=== PATIENT | female | born 1995 | race Caucasian/White ===

== ENCOUNTER 2018-08-10 14:32 | Outpatient (REF) | payer BC, SELFPAY ==
[2018-08-13 15:20] LABS: Chlamydia Result Negative; GC Result Negative; Specimen Description URINE
== END 2018-08-10 14:52 ==
LOC: LBN 14:32
PROVIDERS: PCP Nurse Practitioner Family; Visit Provider Nurse Practitioner Women's Health
DX: Z11.3 Encounter for screening for infections with a predominantly sexual mode of transmission (principal)
CPT/HCPCS: 87491; 87591

== ENCOUNTER 2018-10-29 11:48 | Outpatient (REF) | payer BC, SELFPAY | END 2018-10-29 12:08 | LOC: LBN 11:48 | PROVIDERS: PCP Nurse Practitioner Family; Visit Provider Nurse Practitioner Family | DX: J02.9 Acute pharyngitis, unspecified (principal) | CPT/HCPCS: 87077; 87070 ==

== ENCOUNTER 2019-05-10 15:07 | Outpatient (REF) | payer BC, SELFPAY ==
[2019-05-10 18:28] LABS: Absolute Basophil Count 0.02 k/cumm (0.0-0.2); Absolute Eosinophil Count 0.14 k/cumm (0.0-0.7); Absolute Lymphocyte Count 1.62 k/cumm (1.2-3.4); Absolute Neutrophil Count 4.47 k/cumm (1.2-6.7); Basophils % 0.3; Eosinophils % 2.1; HCT 39.2 % (36.0-46.0); Mean Corp. HGB Concentration 35.7 g/dL (32.0-36.0); Mean Corpuscular Hemoglobin 32.3 pg (27.0-33.0); Mean Corpuscular Volume 90.3 fL (80-95); Mean Platelet Volume 11.9 fL (8.0-11.0); Monocytes % 7.4; Neutrophils % 66.2; Platelet Count 252 x1000/uL (130-400); RBC 4.34 m/cumm (4.00-5.20); RBC Distribution Width 11.5 % (11.7-14.6); White Blood Cell Count 6.75 k/cumm (4.4-10.8)
[2019-05-10 19:27] LABS: Iron 168 ug/dL (50-175); Total Iron Binding Capacity 325 ug/dL (250-450); Transferrin Sat 52 % (15-50)
[2019-05-10 19:42] LABS: ALT 32 U/L (12-78); AST 18 U/L (15-37); Albumin 4.6 g/dL (3.4-5.0); Alkaline Phosphatase 82 U/L (46-116); Anion Gap 11.4 mmol/L (3-11); BUN 13 mg/dL (7-18); Bilirubin, Total 0.6 mg/dL (0.2-1.0); CO2 24.6 mmol/L (21.0-32.0); CREATININE 0.69 mg/dL (0.55-1.02); Calcium 9.5 mg/dL (8.5-10.1); Chloride 105 mmol/L (98-107); Ferritin 121 ng/mL (8-388); Glucose 81 mg/dL (70-100); Potassium 4.2 mmol/L (3.5-5.1); Sodium 141 mmol/L (136-145); TSH (W/Ref FT4) 1.27 uIU/mL (0.358-3.74); Total Protein 7.1 g/dL (6.4-8.2)
== END 2019-05-10 15:27 ==
LOC: LBN 15:07
PROVIDERS: PCP Nurse Practitioner Family; Visit Provider Family Medicine
DX: R53.83 Other fatigue (principal)
CPT/HCPCS: 80053; 82728; 83540; 83550; 84443; 85025

== ENCOUNTER 2019-08-09 12:40 | Outpatient (REF) | payer OTHER, SELFPAY ==
--- NOTE | 2019-08-09 11:00 | PAPFT_PTH ---
PATIENT: Bhakti Dunbar LOC: [facility] U#:[id number] AGE/SX: 24/F ROOM: RE08/09/[address]: KARLA Munson : 1995 BED: DIS: 08/09/2019 SPEC #: [id number] RECD: 08/09/19 13:00 STATUS: ANGY DUMONT #: [id number] CHIVO: 08/09/19 11:[address]: Pamella Liu DEPT: [facility] Cytology RECD BY: Radha Alcocer ENTERED: 08/09/19 13:00 SP TYPE: PAPFT OT DR: Laura Henriquez APRN Tissues: 1 - CX/ENDOCX FOR PAP SMEARS Procedures: PAP THIN PREP/UVM Screening Comments: [id number]
== END 2019-08-09 13:00 ==
LOC: LBN 12:40
PROVIDERS: PCP Nurse Practitioner Family; Visit Provider Nurse Practitioner Family
DX: Z12.4 Encounter for screening for malignant neoplasm of cervix (principal)
CPT/HCPCS: 88142

== ENCOUNTER 2019-09-09 14:57 | Outpatient (CLI) | payer OTHER, SELFPAY ==
[2019-09-09 16:38] LABS: Folate 14.1 ng/mL (8.6-20.0); Vitamin B12 505 pg/mL (193-986)
== END 2019-09-09 15:17 ==
PROVIDERS: PCP Nurse Practitioner Family; Visit Provider Otolaryngology Otolaryngology/Facial Plastic Surgery
DX: R42 Dizziness and giddiness (principal)
CPT/HCPCS: 36415; 82607; 82746

== ENCOUNTER 2019-12-23 16:13 | Outpatient (CLI) | payer OTHER, SELFPAY ==
[2019-12-23 18:14] LABS: ESR 6 mm/hr (0-20)
[2019-12-25 12:13] LABS: Lyme Ab w Rflx to Lyme Confirm Negative (Negative)
== END 2019-12-23 16:33 ==
PROVIDERS: PCP Nurse Practitioner Family; Visit Provider Otolaryngology Otolaryngology/Facial Plastic Surgery
DX: R42 Dizziness and giddiness (principal); R47.1 Dysarthria and anarthria; R53.82 Chronic fatigue, unspecified; W57.XXXD Bitten or stung by nonvenomous insect and other nonvenomous arthropods, subsequent encounter
CPT/HCPCS: 36415; 85652; 86618

== ENCOUNTER 2019-12-30 22:34 | Emergency (ER) | payer OTHER, SELFPAY ==
[2019-12-30 22:37] VITALS: BP 130/75; PULSE 69; RESP 20; TEMP 36.8; O2SAT 97
--- NOTE | 2019-12-30 22:54 | ED.GENADUL_ITS ---
Discharge Plan Disposition Patient Disposition: HOME Condition: Stable Discharge Details Chief Complaint: SPACE CONTROLLER Clinical Impression: Pelvic cramping Primary Care Provider: Laura Henriquez ED Provider: Linda Sy Home Meds and New Rx's Prescriptions: No Action ParaGard T 380A 380 square mm intrauterine device 1 device IY ONCE RF: 0 meclizine 12.5 MG tablet 12.5 mg PO BID PRNQty: 60 RF: 0 cholecalciferol (vitamin D3) 1,000 UNIT tablet 1,000 unit PO DAILY RF: 0 Discharge Instructions Instructions: Pelvic Pain in Women (ED) Additional Instructions: Please take Tylenol or Ibuprofen with food every 4-6 hours as needed for pain and swelling. Follow up with primary care provider in 3-5 days. Return to ED sooner if any worsening or concerns. Increase oral fluids. Follow-up with SPACE CONTROLLER as discussed first thing in the morning. If any bleeding worsening in pain, fever vomiting return to the ED. Medical Decision Making We will do a pelvic exam to visualize IUD strings and flat plate KUB x-ray ordered to evaluate placement. At this time I do not have an technical services assistant available to evaluate placement. 0000: Pelvic exam performed Crystal RN assisted procedure. Unable to visualize IUD strings at this time. Swabs obtained for vaginal pathogen and GC and chlamydia which are pending at this time TECHNIQUE: Imaging protocol: XR of the abdomen. Views: Frontal supine view of the abdomen. 1 View. COMPARISON: No relevant prior studies available. FINDINGS: Gastrointestinal tract: Normal. No bowel dilation. Organs: IUD appears to be well-positioned by single-view abdominal film. Bones/joints: Unremarkable. IMPRESSION: IUD appears to be properly positioned in the central pelvis. Thank you for allowing us to participate in the care of your patient. Dictated and Authenticated by: Bulmaro Nixon MD 12/30/2019 11:52 PM Eastern Time ([place] & [place]) X-ray results noted above which report that IUD appears to be well-positioned in the central pelvis. Discussed results with patient she verbalizes understanding and states that she will call her SPACE CONTROLLER first thing in the morning to make an appointment. Discussed strict return instructions, verbalized understanding. At this time I feel it is safe for her to be discharged home with pelvic cramping. This could be related to normal IUD placement she is not generally tender to suggest peritonitis from a perforated IUD. Differential diagnosis includes uterine perforation, pelvic inflammatory disease, infected IUD or other pelvic infection. HPI General Mode of arrival: ambulatory . Date/Time Provider Initiated Documentation: 12/30/19 22:37 . Limitations to Documentation: no limitations . Information obtained by: patient . HPI Narrative: 24-year-old female presents with suprapubic abdominal cramping after IUD placement on Monday. Reports mild dark brownish discharge associated with cramping which worsened today. She also reports diarrhea for the last 2 days. Denies dysuria or fever nausea or vomiting. She has never had an IUD before. Related Data Home Medications Medication Instructions Recorded Confirmed meclizine 12.5 mg PO BID PRN #60 tab-cap 01/19/17 12/30/19 cholecalciferol (vitamin D3) 1,000 unit PO DAILY 04/17/18 12/30/19 copper 380 square mm intrauterine 1 device IY ONCE 12/24/19 12/30/19 device Allergies Allergy/AdvReac Type Severity Reaction Status Date / Time adhesive AdvReac Skin Rash Verified 12/30/19 22:40 iv dye Allergy Severe Anaphylaxsi Uncoded 12/30/19 22:40 s peanuts Allergy hives, Uncoded 12/30/19 22:40 vomiting General Stated Complaint: SPACE CONTROLLER SHERIN: 3 Review of Systems Narrative: Constitutional: Negative for weight loss, alert and oriented, well groomed, normal body habitus, appears comfortable. HEENT: Denies trauma, headaches, blurry vision, nasal discharge, sore throat, trouble swallowing. Chest: Denies chest pain, palpitations, irregular rhythm, hypertension. Respiratory: Denies Shortness of breath, cough, hemoptysis. GI: Denies nausea, vomiting, constipation. Positive abdominal pain positive diarrhea the last 2 days. : Denies dysuria, hematuria, positive bilateral flank pain, negative rectal bleeding. Neuro: Denies dizziness, blurry vision, weakness, syncope, headache or facial numbness. Hematologic: Denies easy bruising, intolerance to heat or cold, hair loss. [facility] Medical History Ankle fracture (Resolved) Asthma (Chronic 01/19/17) Benign paroxysmal positional vertigo (Resolved 03/09/17) Migraine with aura (Chronic 01/08/15) Ovarian cyst (Resolved) Surgical History Arthroscopy, Ankle R x2 Arthroscopy, Hip R x 2 Family History Mother Ulcerative colitis Father Hemochromatosis Grandmother , Heart disease at age 70. Diabetes Essential hypertension Heart disease Hyperlipidemia COPD (chronic obstructive pulmonary disease) Secondhand smoke exposure Grandmother Substance abuse EtOH Thyroid disease Pt not sure what exact issue was, but had part of thyroid removed Grandfather Neoplasm Prostate CA Asthma Grandfather No problems noted. Social History Smoking/Tobacco Use Status: Never Alcohol Intake: current Alcohol Intake frequency: a few times a month Alcohol type: beer Substance use type: does not use Adopted: No Caregiver/Support person: No Foster care: No Household members: significant other Number of Children: 0 Communication Needs: Corrective Lenses current occupation: PT assist What type of physical activity do you participate in: regular exercise Seatbelt use: always Drive intox or ride w/intox sprinkling truck driver: No Working smoke detector in home: Yes Carbon monox detector in home: Yes Do you feel safe at home: Yes Do you feel safe in your relationship?: Yes Female Reproductive History Menstrual control method: condoms History History 0 Para Hx # Term Pregnancies Multiple births Hx # Pregnancies Ectopic pregnancies AB induced Hx Number of Living Children AB spontaneous Exam Narrative Exam Narrative: Constitutional: Allert and oriented x3. Appears stated age. Normal body habitus. Head: Normocephalic, no trauma. Eyes: Pupils PERRLA, Red reflex noted, EOM's intact. Eyelids symmetrical withour lesions, discharge, or swelling. ENT: Bilateral TM's WNL, External ear normal to inspection, no mastoid TTP, swelling, or erythema, Nasal turbinates WNL, no nasal discharge. Normal dentition, Posterior pharynx WNL, no exudate. Chest: RRR, Normal S1, S2, distal pulses intact. Resp: Lungs clear to auscultation bilaterally, no wheezes, rales, or rhonchi. GI: Midline suprapubic tenderness to palpation. Abdomen is soft, hypoactive bowel sounds all 4 quadrants. Bilateral CVA tenderness to palpation. Musculoskeletal: Normal gait, 5/5 strength to all four extremities. Skin: No suspicious rashes or lesions. Capillary refill ?2 sec. Neurologic: Cranial nerves II-XII intact. Alert and oriented x 3. DTR's intact. Hematologic/Lymphatic: No ecchymosis, no lymphadenopathy. Speculum Exam - Vagina: normal appearance of the vagina and abnormal vaginal discharge other (Thick greenish) Speculum Exam - Cervix: other (Unable to visualize IUD strings from cervical os) Course Vital Signs Vital signs: Vital Signs Temperature 36.8 C 12/30/19 22:37 Pulse 69 12/30/19 22:37 Respiratory Rate 20 12/30/19 22:37 Blood Pressure 130/75 12/30/19 22:37 Pulse Oximetry 97 12/30/19 22:37 Temperature 36.8 C 12/30/19 22:37 Temperature Source Temporal Artery Scan 12/30/19 22:37 Pulse 69 12/30/19 22:37 Respiratory Rate 20 12/30/19 22:37 Respiratory Effort Non-Labored 12/30/19 22:40 Blood Pressure 130/75 12/30/19 22:37 Pulse Oximetry 97 12/30/19 22:37 Oxygen Delivery Method Room Air 12/30/19 22:37 Oxygen Flow Rate 0 12/30/19 22:37 Pain Level 7 12/30/19 22:40
[2019-12-30 23:33] LABS: Bilirubin Negative (Negative); Blood Trace-intact (Negative); Clarity Sl Cloudy (Clear); Glucose Negative (Negative); Ketones Trace mg/dL (Negative); Leukocyte Esterase Trace (Negative); Nitrite Negative (Negative); Specific Gravity 1.025 (1.005-1.025); Urobilinogen 0.2 EU/dL (Up TO 0.2); pH 7.5 (5-8)
--- NOTE | 2019-12-30 23:35 | DI.RAD_ITS ---
EXAM: 2D digital imaging was performed. CLINICAL HISTORY: IUD placement. COMPARISON: PELVIS AP from 01/19/2017 TECHNIQUE: Supine views of the abdomen performed. FINDINGS: BOWEL GAS PATTERN: Nondistended. CALCIFICATIONS: No radiopaque calcifications. OSSEOUS STRUCTURES: Normal for age. OTHER FINDINGS: IUD is in good position based on this single view. IMPRESSION: 1. Nonobstructive bowel gas pattern. 2. IUD in good position. DATA REPOSITORY: RADIATION DOSE DELIVERED:
[2019-12-30 23:44] LABS: Bacteria Moderate HPF (Negative); C & S Indicated? Yes; Casts Negative LPF (Negative); Crystals Many Amorphous HPF (Negative); Epithelial Cells Moderate HPF (Negative); Mucus Negative (Negative); RBC 0-2 HPF (0-2)
--- NOTE | 2019-12-30 23:52 | DI.VRAD_ITS ---
PROCEDURE INFORMATION: Exam: XR Abdomen, 1 View Exam date and time: 12/30/2019 11:37 PM Age: 24 years old Clinical indication: Localized; Left; Patient HX: Lower abdominal pain today, ? iud placement, cannot find strings TECHNIQUE: Imaging protocol: XR of the abdomen. Views: Frontal supine view of the abdomen. 1 View. COMPARISON: No relevant prior studies available. FINDINGS: Gastrointestinal tract: Normal. No bowel dilation. Organs: IUD appears to be well-positioned by single-view abdominal film. Bones/joints: Unremarkable. IMPRESSION: IUD appears to be properly positioned in the central pelvis. Dictated and Authenticated by: Bulmaro Nixon MD. Ordering:JULIO CÉSAR Mckeon MD
[2019-12-31 01:07] VITALS: BP 130/75; PULSE 69; RESP 20; TEMP 36.8; O2SAT 97
[2020-01-01 15:15] LABS: Chlamydia Result Negative (Negative); GC Result Negative (Negative)
== END 2019-12-31 00:05 | disposition home or self-care (01) ==
PROVIDERS: Emergency Provider Registered Nurse Emergency; PCP Nurse Practitioner Family
DX: N89.8 Other specified noninflammatory disorders of vagina (principal); R10.2 Pelvic and perineal pain; Y84.8 Other medical procedures as the cause of abnormal reaction of the patient, or of later complication, without mention of misadventure at the time of the procedure; Z97.5 Presence of (intrauterine) contraceptive device
CPT/HCPCS: 81025; 87491; 87591; 99284; 74018; 81003; 81015; 87086; 87480; 87510; 87660

== ENCOUNTER 2020-01-10 02:26 | Outpatient (CLI) | payer OTHER, SELFPAY ==
--- NOTE | 2020-01-10 | DI.MRI_ITS ---
EXAM: MR BRAIN WO/W CLINICAL HISTORY: DIZZINESS,R42,Z86.69 H/O MIGRAINE,R53.82,CHRONIC FATIGUE TECHNIQUE: Multiplanar multisequence MRI of the brain was performed. Including post contrast imagin g. COMPARISON: No exams were available for comparison FINDINGS: The ventricular system is normal in appearances. No signal abnormality identified in the brain. The orbital and temporal bone structures appears intact as does the pituitary. Diffusion weighted imaging shows No evidence of infarction. Susceptibility weighted imaging shows no evidence of intracranial hemorrhage. There is normal flow void in the grand traverse of [place] vasculature. Post contrast axial and coronal T1 weighted imaging shows no evidence of mass lesion or enhancing les ion in the brain. IMPRESSION: Normal brain MRI including post contrast imaging. DATA REPOSITORY:
[2020-01-10] MEDS: Normal Saline Flush 10 ML SYR IVP (08:39)
[2020-01-10] MEDS: Gadoterate meglumine 20 ML VIAL 13 ML IVP (08:40)
== END 2020-01-10 02:46 ==
PROVIDERS: PCP Nurse Practitioner Family; Visit Provider Otolaryngology Otolaryngology/Facial Plastic Surgery
DX: R42 Dizziness and giddiness (principal); R53.82 Chronic fatigue, unspecified; Z86.69 Personal history of other diseases of the nervous system and sense organs
CPT/HCPCS: 70553

== ENCOUNTER 2020-04-28 09:14 | Outpatient (CLI) | payer OTHER, SELFPAY ==
--- NOTE | 2020-04-28 08:15 | DI.RAD_ITS ---
EXAM: XR ANKLE RT COMPLETE CLINICAL HISTORY: right ankle pain TECHNIQUE: 2D digital imaging was performed. COMPARISON: No exams were available for comparison FINDINGS: There is mild spurring at the lateral malleolus. There is slight irregularity at the lateral talar dome which has appearance of an old osteochondral defect. No joint space narrowing is seen. Ankle m ortise appears intact. 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 Mild degenerative changes.
--- NOTE | 2020-04-28 09:00 | DI.RAD_ITS ---
EXAM: XR FOOT RT COMPLETE CLINICAL HISTORY: right foot pain. TECHNIQUE: 2D digital imaging was performed. COMPARISON: No exams were available for comparison FINDINGS: BONES: No acute fracture is present. No bony destructive lesion is seen. JOINTS: No dislocation present. SOFT TISSUE: Normal. IMPRESSION: Unremarkable radiographs of the right foot. DATA REPOSITORY: RADIATION DOSE DELIVERED:
== END 2020-04-28 09:34 ==
PROVIDERS: PCP Nurse Practitioner Family; Visit Provider Student in an Organized Health Care Education/Training Program
DX: M79.671 Pain in right foot (principal); M25.571 Pain in right ankle and joints of right foot
CPT/HCPCS: 73610; 73630

== ENCOUNTER 2020-05-01 02:09 | Outpatient (CLI) | payer OTHER, SELFPAY ==
--- NOTE | 2020-05-01 06:45 | DI.MRI_ITS ---
EXAM: MR LOWER JOINT RT WO CLINICAL HISTORY: Hx right lateral talar OCD surgeries, ankle joint loose body, osteochondral. TECHNIQUE: Multiplanar multisequence MRI was performed. COMPARISON: CR XR ANKLE RT COMPLETE from 04/28/2020 FINDINGS: The patient has history of previous surgery for osteochondral defect. There is an osteochondral defe ct of the lateral talar dome with only the slight depression at the articular surface. There is some edema in the marrow of the lateral aspect of the talus. A tiny bony projection is seen at the corne r of the lateral talar. There is a minimal amount of joint fluid. No joint space loose body is iden tified. No tendon or ligament tear is seen. IMPRESSION: Old osteochondral defect of talar with minimal depression at the articular surface. No loose body. DATA REPOSITORY:
== END 2020-05-01 02:29 ==
PROVIDERS: PCP Nurse Practitioner Family; Visit Provider Student in an Organized Health Care Education/Training Program
DX: M24.071 Loose body in right ankle (principal); M89.8X7 Other specified disorders of bone, ankle and foot; R60.0 Localized edema; M25.471 Effusion, right ankle
CPT/HCPCS: 73721

== ENCOUNTER 2020-05-05 01:34 | Outpatient (CLI) | payer OTHER, SELFPAY ==
--- NOTE | 2020-05-05 07:45 | DI.DEXA_ITS ---
EXAM: XR DEXA BONE DENSITY W/WO ROBERTA CLINICAL HISTORY: Recurrent stress fractures,m84.374a TECHNIQUE: COMPARISON: No exams were available for comparison FINDINGS: DEXA scan was performed according to the usual protocol. Please see the accompanying data sheets. F indings for left hip scanning are T-score 0.6 with left femoral neck T-score is 0. Findings for lumbar spine scanning are T-score -0.2. Findings for left forearm scanning are T-score -0.4. IMPRESSION: Normal bone density according to the WHO criteria. The lateral vertebral scanogram shows no evidence of a vertebral compression fracture.
== END 2020-05-05 01:54 ==
PROVIDERS: PCP Nurse Practitioner Family; Visit Provider Student in an Organized Health Care Education/Training Program
DX: M85.88 Other specified disorders of bone density and structure, other site (principal); M84.374A Stress fracture, right foot, initial encounter for fracture
CPT/HCPCS: 77080

== ENCOUNTER 2020-05-08 02:45 | Outpatient (CLI) | payer OTHER, SELFPAY ==
[2020-05-11 05:55] LABS: Vitamin D 25 Total 46.4 ng/ml (30-100)
== END 2020-05-08 03:05 ==
PROVIDERS: PCP Nurse Practitioner Family; Visit Provider Student in an Organized Health Care Education/Training Program
DX: M84.374A Stress fracture, right foot, initial encounter for fracture (principal)
CPT/HCPCS: 36415; 82306

== ENCOUNTER 2020-06-16 07:16 | Outpatient (CLI) | payer OTHER, SELFPAY ==
[2020-06-18 02:32] LABS: COVID-19 RT-PCR Result NEGATIVE (Negative)
== END 2020-06-16 07:36 ==
PROVIDERS: PCP Nurse Practitioner Family; Visit Provider Student in an Organized Health Care Education/Training Program
DX: Z01.818 Encounter for other preprocedural examination (principal)
CPT/HCPCS: U0003

== ENCOUNTER 2020-06-19 06:05 | Day surgery (SDC) | payer OTHER, SELFPAY ==
[2020-06-19 06:13] VITALS: BP 117/72; PULSE 60; RESP 14; TEMP 36.6; O2SAT 100
[2020-06-19] MEDS: Lactated Ringers 1,000 ML 100 ML IV (06:36)
[2020-06-19] MEDS: Bupivacaine 0.5% Pres-Free 30 ML VIAL (07:11)
[2020-06-19] MEDS: ceFAZolin 2 GM/50 ML BAG IVPB (08:15)
[2020-06-19 10:20] VITALS: BP 104/67; PULSE 86; RESP 11; TEMP 36.5; O2SAT 98
[2020-06-19 10:25] VITALS: BP 116/67; PULSE 98; RESP 10; TEMP 36.5; O2SAT 97
[2020-06-19 10:30] VITALS: BP 119/65; PULSE 78; RESP 22; TEMP 36.5; O2SAT 97
[2020-06-19 10:35] VITALS: BP 109/85; PULSE 80; RESP 17; TEMP 36.5; O2SAT 98
--- NOTE | 2020-06-19 11:06 | PDOC.DSDIS_ITS ---
Discharge Plan Disposition Patient Disposition: HOME Condition: Stable Discharge Details Reason For Visit: Right ankle surgery Attending Provider: Paul Cheng Primary Care Provider: Laura Henriquez Home Meds and New Rx's Prescriptions: New naproxen 250 mg tablet 250 - 500 mg PO BID PRN (Reason: Moderate pain or swelling) Qty: 30 RF: 0 aspirin 81 mg tablet,delayed release (DR/EC) 81 mg PO DAILY 14 Days Qty: 14 RF: 0 ondansetron 4 mg tablet,disintegrating 4 mg PO Q6H PRN (Reason: nausea or vomiting) Qty: 5 RF: 0 oxycodone 5 mg tablet 5 - 10 mg PO Q4H PRN (Reason: moderate to severe pain) Qty: 12 RF: 0 Continued ParaGard T 380A 380 square mm intrauterine device 1 device IY ONCE RF: 0 prochlorperazine maleate 5 mg tablet See Rx Instructions PO TID PRN (Reason: headaches) Qty: 30 RF: 2 cholecalciferol (vitamin D3) 1,000 UNIT tablet 1,000 unit PO DAILY RF: 0 Discharge Instructions Additional Instructions: Surgery: Right ankle arthroscopy with extensive debridement, talus microfracture, and removal of osteophytes Activity: Non-weightbearing with crutches for 8 weeks. Recommend ice and elevation to minimize swelling and discomfort. Perform active ankle range of motion exercises many times each day. A physical therapy prescription will be provided separately in the office at follow-up if needed. Prescriptions: Aspirin 81 mg take 1 daily to prevent a blood clot for 2 weeks Naproxen 250 mg take 1-2 every 12 hours with a meal as needed for moderate pain Oxycodone 5 mg take 1-2 every 4-6 hours as needed for severe pain You may use [id number]-dwdjogm Tylenol (acetaminophen) as needed for mild pain. These pain medications may be taken all at once or in different combinations as needed. Ondansetron (Zofran) 4 mg take 1 orally dissolving tablet every 6 hours as needed for nausea or vomiting Also, recommend Colace (docusate) as a stool softener as surgery and pain medicine cause constipation. Dressings: Leave dressing in place for 3 days. May then remove dressing and leave Steri-Strips open to air or cover with Band-Aids. May shower after 5 days and remove Steri-Strips. Follow-up: 10-[address] Cheng Let us know right away if you develop any redness, drainage, fevers, chest pain, or trouble breathing. Do not drink alcohol or drive for at least 24 hours after anesthesia. Please call the office during business hours with any questions or concerns. Referrals: Paul Cheng MD [ [facility] STAFF PHYSICIAN] - Discharge Orders Discharge Orders: Discharge Order (Routine); Ordered 06/19/20 Ordered By: Paul Cheng DS: Diagnosis Discharge Diagnosis (1) Ankle impingement syndrome, right: Status: Acute (2) Osteochondral talar dome lesion: Status: Acute
[2020-06-19 11:37] VITALS: BP 100/59; PULSE 54; RESP 16; TEMP 36.7; O2SAT 100
--- NOTE | 2020-06-19 12:04 | ROE_ITS ---
Date of service: 06/19/20 Time of Service: 11:06 Operative Note Operative Note DATE OF PROCEDURE: 06/19/20 PRE-OP DIAGNOSIS: Right: 1. Talus osteochondral lesion 2. Ankle joint loose body 3. Anterior ankle impingement POST-OP DIAGNOSIS: other Right: 1. Talus osteochondral lesion with unstable cartilage flap 2. Anterior ankle impingement PROCEDURE: Right: 1. Ankle arthroscopy with extensive debridement, CPT# 71219: Involved articular shaving and debridement of unstable cartilage flaps in the central compartment, removal through the sheath, and removal of osteophytes anteriorly, medially, and laterally. 2. Ankle arthroscopy with partial synovectomy, CPT #65401: Involved shaving and debridement of pathologic synovitis anteriorly and in the medial and lateral gutters 3. Arthroscopic excision osteochondral defect talus including microfracture, CPT # 00449: Involved debriding osteochondral defect to stable margin and making multiple perforations into subchondral bone for bone marrow stimulation SURGEON: Paul Cheng ANESTHESIA: GETA and regional ESTIMATED BLOOD LOSS: 5 PATHOLOGY: none sent TOURNIQUET TIME: 0 COMPLICATIONS: None Patient was transported to: PACU Patient's condition: stable Implants: None Indications: Please see complete medical record for details. Findings: Approximately 1 x 1 cm central lateral talar dome osteochondral lesion with full-thickness unstable cartilage flap partially involving the lateral shoulder. Otherwise preserved articular cartilage throughout the talar dome and distal tibia. Impinging anterior distal tibia and talar osteophytes medially and laterally. Moderate synovitis anteriorly, medially, and laterally. Procedure Description: In the operating room, general anesthesia was induced. A tourniquet was placed loosely over padding on the proximal thigh. The patient was positioned supine on the operating room table with the hip in flexion and posterior thigh thigh on a padded abdullahi. All bony prominences were well- padded. Preoperative antibiotics were administered. The right ankle was prepped and draped in the usual sterile fashion. The correct patient, procedure, and side of the procedure were all verified prior to incision. The patient's prior anterior medial and anterolateral portal incisions were were marked. The foot was positioned in plantarflexion inversion to isolate the superficial peroneal nerve and its course was marked. The sterile ankle strap was applied about the heel and dorsal midfoot and attached to the spider positioner. Next, an 18-gauge needle was used to localize the anterior medial portal placement just medial to the tibialis anterior tendon. 30 cc of normal saline were used to distend the joint capsule. Using a careful ny and spread technique using the prior anteromedial incision with the ankle and dorsiflexion the arthroscope was inserted atraumatically into the anterior ankle compartment. Diagnostic arthroscopy was performed using a 2.7 mm arthroscope and after it was determined there was adequate size for larger arthroscope it was switched for the standard 4.5 mm arthroscope. A complete diagnostic arthroscopy was performed including inspection of the anterior compartment, medial lateral gutters, central compartment and repeated with the ankle and traction and plantar flexion to be a central compartment and bring part of the posterior compartment into view. Notable findings detailed above. Next, the 18-gauge needle was used to localize placement of the anterior lateral portal through the more proximal prior incision. Again using careful ny and spread technique this portals established and a 3.5 mm mechanical shaver introduced. A synovectomy was performed anteriorly medially and laterally including the gutters to improve visualization throughout and remove pathologic hemorrhagic impinging proliferative synovitis. The ankle was then positioned in plantarflexion and moderate traction applied. The unstable cartilage flap was too large to be removed with a shaver so a stable rim was established using a curette and removed was removed through the portal using a small snap. Care was then taken to establish stable pryor about the osteochondral lesion using curettes of various sizes as well as completed debride scar cartilage and soft tissue from the lesion bed. The lesion was probed found to have stable vertical margins as best possible given limitations about the lateral shoulder and the ankle was placed gently into maximal plantarflexion and microfracture awls and picks with the best angles were used to penetrate the subchondral bone approximately 5 mm in about 9 locations leaving 3 mm between each spot. The inflow was shut off and vigorous bleeding was demonstrated from all of except 1 of the microfracture sites. Microfracture awl was reinserted into this spot, which was slightly deepened another millimeter or so an additional microfracture location was added adjacent to this 1. The inflow was shut off once again appropriate vigorous bleeding was demonstrated from all sites. The inflow was turned back on and, traction was released, and attention was turned to the anterior ankle bone spur impingement largely from separate anterior medial anterior lateral osteophytes. Alternating working through the anterior lateral and viewing from the anterior medial portals and working through the anterior medial and viewing through the anterolateral portals both osteophytes of the talus were completely. A thickened anterior inferior tibiofibular ligament was also lightly debrided. The ankle was brought into maximal plantarflexion viewing from anterior medially and anterior laterally confirming removal of all impinging lesions. The ankle joint was copiously flushed irrigated using the arthroscopic pump with normal saline. The medial and lateral gutters, anterior compartment, and central compartment were once again inspected found to be free of pathologic synovium, any loose or unstable cartilage fragments, and traction was briefly applied again viewing completely centrally and more posteriorly, which is also free of associated pathology. Both portals were closed in 3-0 Monocryl in buried fashion. Mastisol was applied about each portal followed by Steri-Strips, dry for 4 gauze, and sterile soft roll. The foot, ankle, and leg were wrapped in an Wolfgang bandage. A total of 25 minutes under 20 pounds of noninvasive traction through the external padded ankle strap have been used. The patient awoke from anesthesia without complication and was transferred to the recovery room in a stable condition.
== END 2020-06-19 12:33 | disposition home or self-care (01) ==
PROVIDERS: PCP Nurse Practitioner Family; Visit Provider Student in an Organized Health Care Education/Training Program
DX: M25.871 Other specified joint disorders, right ankle and foot (principal); M89.8X7 Other specified disorders of bone, ankle and foot; M94.8X7 Other specified disorders of cartilage, ankle and foot
CPT/HCPCS: 76942; E0114; J0690; J1100; J1885; J2001; J2250; J2405

== ENCOUNTER 2020-10-12 09:21 | Outpatient (CLI) | payer OTHER, SELFPAY ==
--- NOTE | 2020-10-09 12:00 | DI.RAD_ITS ---
EXAM: XR THORACIC SPINE COMPLETE CLINICAL HISTORY: Possible upper thoracic compression frx (T3-5?) m54.6 pain in t spine. TECHNIQUE: 2D digital imaging was performed. COMPARISON: No exams were available for comparison FINDINGS: BONES: There is no fracture or destructive lesion. The vertebral bodies and posterior elements are un remarkable. DISKS:Alignment is within normal limits. Interverebral disc spaces are maintained. SOFT TISSUE: Visualized lungs are clear. IMPRESSION: Unremarkable radiographs of the thoracic spine. There is continued clinical concern, either CT scan o r MRI may be considered for further evaluation. DATA REPOSITORY: RADIATION DOSE DELIVERED:
== END 2020-10-12 09:41 ==
PROVIDERS: PCP Nurse Practitioner Family; Visit Provider Family Medicine
DX: M54.6 Pain in thoracic spine (principal)
CPT/HCPCS: 72072

== ENCOUNTER 2020-10-28 08:51 | Outpatient (CLI) | payer OTHER, SELFPAY ==
--- NOTE | 2020-10-28 08:35 | DI.RAD_ITS ---
EXAM: XR ANKLE RT COMPLETE CLINICAL HISTORY: F/u. TECHNIQUE: 2D digital imaging was performed. COMPARISON: CR XR ANKLE RT COMPLETE from 04/28/2020 FINDINGS: There is no evidence of acute fracture or widening of the mortise. The radiographic appearance of th e osteochondral defect in the lateral aspect of the talar dome is unchanged. There are no degenerati ve subarticular cyst in the talar dome. The tibial plafond is unremarkable. No osseous talar coalit ion evident. IMPRESSION: DATA REPOSITORY: RADIATION DOSE DELIVERED:
== END 2020-10-28 09:11 ==
PROVIDERS: PCP Nurse Practitioner Family; Referring Provider Nurse Practitioner Family; Visit Provider Student in an Organized Health Care Education/Training Program
DX: M25.871 Other specified joint disorders, right ankle and foot (principal)
CPT/HCPCS: 73610

== ENCOUNTER 2021-08-13 02:04 | Outpatient (CLI) | payer OTHER, SELFPAY ==
[2021-08-13 16:25] LABS: Abs Immature Grans 0.03 10^3/uL (0.0-0.06); Absolute Basophil Count 0.03 10^3/uL (0.0-0.2); Absolute Eosinophil Count 0.05 10^3/uL (0.0-0.7); Absolute Lymphocyte Count 1.55 10^3/uL (1.2-3.4); Absolute Monocyte Count 0.44 10^3/uL (0.1-0.8); Absolute Neutrophil Count 7.36 10^3/uL (1.2-6.7); Basophils % 0.3; Eosinophils % 0.5; HCT 33.4 % (36.0-46.0); HGB 11.8 g/dL (11.2-15.7); Immature Grans % 0.3; Lymphocytes % 16.4; MCH 32.2 pg (27.0-33.0); MCHC 35.3 % (32.0-36.0); MPV 10.8 fL (8.0-11.0); Monocytes % 4.7; Neutrophils % 77.8; Nucleated RBC 0 %; Platelet Count 234 10^3/uL (130-400); RBC 3.67 10^6/uL (3.93-5.22); RDW 11.6 % (11.7-14.6); RDW-SD 38.4 fL; WBC 9.46 10^3/uL (4.4-10.8)
[2021-08-13 17:01] LABS: *AMPHETAMINES SCREEN URINE Negative (Negative); *BARBITURATES SCREEN URINE Negative (Negative); *BENZODIAZEPINES SCREEN URINE Negative (Negative); Cannabinoids THC Negative (Negative); Cocaine Screen,Urine Negative (Negative); METHADONE URINE SCREEN Negative (Negative); OPIATES URINE SCREEN Negative (Negative)
[2021-08-13 17:12] LABS: Tricyclic Antidepressants Negative (Negative)
[2021-08-16 10:30] LABS: Hepatitis B Surface Ag Negative (Negative)
[2021-08-16 11:04] LABS: HIV-1/2 Ag & Ab Screen Negative (Negative)
[2021-08-16 11:14] LABS: Hepatitis C Ab w Rflx HCV PCR Negative (Negative)
[2021-08-16 12:51] LABS: Rubella IgG Ab (UVM) Negative (See Note); Varicella IgG Antibody Negative (See Note)
[2021-08-16 15:22] LABS: Chlamydia Result Negative (Negative); GC Result Negative (Negative)
[2021-08-17 10:33] LABS: Syphilis Total Ab w/Reflex Nonreactive (Nonreactive)
[2021-08-18 09:16] LABS: Buprenorphine Negative ng/mL (Cutoff: 5.0); Norbuprenorphine Negative ng/mL (Cutoff: 2.5)
== END 2021-08-13 02:05 | disposition home or self-care (01) ==
LOC: LBO 02:04
PROVIDERS: Visit Provider Advanced Practice Midwife
DX: Z34.91 Encounter for supervision of normal pregnancy, unspecified, first trimester (principal); Z11.59 Encounter for screening for other viral diseases; Z11.4 Encounter for screening for human immunodeficiency virus [HIV]; Z11.3 Encounter for screening for infections with a predominantly sexual mode of transmission; Z01.84 Encounter for antibody response examination; Z3A.11 11 weeks gestation of pregnancy
CPT/HCPCS: 80307; 86787; 86803; 86850; 86900; 86901; 87340; 87389; 87491; 87591; 85025; 86762; 86780; 87086

== ENCOUNTER 2021-08-13 16:30 | Outpatient (REF) | payer OTHER, SELFPAY ==
--- NOTE | 2021-08-13 13:30 | PAPFT_PTH ---
PATIENT: Bhakti Dunbar LOC: [facility] U#:[id number] AGE/SX: 26/F ROOM: RE08/13/[address]: Carmen Bojorquez CNM : 1995 BED: DIS: 08/13/2021 SPEC #: [id number] RECD: 08/13/21 16:41 STATUS: ANGY REQ #: [id number] CHIVO: 08/13/21 13:[address]: Carmen Bojorquez DEPT: [facility] Cytology RECD BY: Radha Alcocer ENTERED: 08/13/21 16:41 SP TYPE: PAPFT OTHR DR: Unknown,Unknown Tissues: 1 - CX/ENDOCX FOR PAP SMEARS Procedures: PAP THIN PREP/UVM Screening Comments: [id number]
== END 2021-08-13 16:31 | disposition home or self-care (01) ==
LOC: LBN 16:30
PROVIDERS: Visit Provider Advanced Practice Midwife
DX: Z12.4 Encounter for screening for malignant neoplasm of cervix (principal); R87.610 Atypical squamous cells of undetermined significance on cytologic smear of cervix (ASC-US)
CPT/HCPCS: 88142

== ENCOUNTER 2021-09-24 03:21 | Outpatient (CLI) | payer OTHER, SELFPAY ==
[2021-09-27 12:12] LABS: AFP 34.3 ng/mL; Calculated age at EDD 27 years; Cigarette smoking status non-Smoker; GA used in risk estimate Scan estimate; IVF Pregnancy No; Initial or repeat testing Initial testing; Insulin dependent diabetes No; Maternal Weight 142 lbs; Number of Fetuses 1; Physician Phone Number 802-748-7300; Prev Pregnancy w/NTD No; RECOMMENDED FOLLOW UP None.; Results Summary Normal risk
--- NOTE | 2021-11-22 14:17 | W.ANESCON ---
General Date of Service Date of Service: 11/12/20 Reason for Consult Requesting Provider: Popeye Marcum How Consult Conducted:: Phone Conversation Reason for Consult:: nerve block complication Consult Recommendation after Review:: no issues. Meds Allergies and Home Medications Allergies Allergy/AdvReac Type Severity Reaction Status Date / Time adhesive AdvReac Skin Rash Verified 09/10/21 14:47 iv dye Allergy Severe Emotional Uncoded 09/10/21 14:47 reaction - crying/laughing, scratchy throat peanuts Allergy hives, Uncoded 09/10/21 14:47 vomiting Home Medication Medication Instructions Recorded meclizine 12.5 mg tablet 12.5 mg PO BID PRN #60 tab-cap 04/07/21 prenat.vits,yony,[id number]-[id number] 1 tab PO DAILY 05/14/21 PFSH Active Problems Active Problems: Problem Status Onset Code Dilation of renal pelvis of fetus Z34.90 Maternal varicella, non-immune O09.899, Z28.3 Rubella non-immune status, antepartum O99.891, Z28.3 Positive test Z32.01 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 Labral tear of right hip joint S73.191A 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 Ankle impingement syndrome, right 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, 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, 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 Stress fracture of foot M84.376A 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, 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 Chronic fatigue R53.82 Asymmetrical hearing loss of left ear H91.8X2 Tinnitus, bilateral H93.13 Dysarthria R47.1 Dizziness R42 Asthma 01/19/17 J45.909 Migraine with aura 01/08/15 G43.109 Medical History Medical History Ankle fracture Ankle joint loose body Asthma (01/19/17) Atypical migraine Blurry vision Chronic fatigue Migraine with aura (01/08/15) Tick bite Vertigo Surgical History Surgical History Arthroscopy, Ankle R x3 Arthroscopy, Hip R x 2 Tobacco Smoking/Tobacco Use Status: Never Passive smoking exposure: No Alcohol Alcohol Intake: current Alcohol intake frequency: a few times a month Alcohol type: beer Details: 2-3 TIMES A WEEK Substance Use Substance use: Never Substance use type: does not use Prental History History 1 Para Hx # Term Pregnancies Multiple births Hx # Pregnancies Ectopic pregnancies AB induced Hx Number of Living Children AB spontaneous Vital Signs & Lab Results Point of Care Results Nursing Point of Care Results: No Data to Display Lab Results Blood Type / Crossmatch: No Data to Display Complete Blood Count: No Data to Display Complete Metabolic Panel: No Data to Display Liver Function Panel: No Data to Display Coagulation Panel: No Data to Display Cardiac Panel: No Data to Display Arterial Blood Gas: No Data to Display Venous Blood Gas: No Data to Display Pancreas Panel: No Data to Display Thyroid Panel: No Data to Display Infectious Disease: Coronavirus (COVID-19)(PCR) Negative (Negative) 10/25/21 09:26 10/25/21 Blood Cultures: No Data to Display Toxicology Panel: No Data to Display Panel: No Data to Display Anesthesia Assessment and Plan Preoperative Comments:: 11/12/2020: Asked to chat with Bhakti in regards to her pervious anesthesia complication (nerve block with an extreme duration of motor blockade) and her potential for laboring here at [facility]. She had an ankle scope for which a pop/sciatic and an adductor canal blocks where performed. About a week or two later at her follow up appointment she was still having motor weakness in her entire leg below the blocks. We discussed that since it was not in a specific nerve distribution that she might just be very sensitive to local anesthetics and that her nerves did not want to wake up post block. The duration of motor weakness persisted until she was about to start moving it more and walking on it, at which point she had a steady return of her normal function. We discussed that her nerve block duration being as long as it was is very uncommon. We discussed briefly the difference between neuraxial anesthesia and the nerve blocks that she had. I discussed that I was unable to find anything in the literature that points to her having any complications related to neuraxial. I also discussed her case with the anesthesia department, no one has any concerns about her being at an increased risk of complications. We did go over that while we believe that her risk of complications is likely normal, that we can't make any guarantees, and we would be cautious with our neuraxial dosing for her.
== END 2021-09-24 03:22 | disposition home or self-care (01) ==
LOC: LBO 03:21
PROVIDERS: Visit Provider Advanced Practice Midwife
DX: Z34.92 Encounter for supervision of normal pregnancy, unspecified, second trimester (principal)
CPT/HCPCS: 36415; 82105

== ENCOUNTER 2021-12-03 01:14 | Outpatient (CLI) | payer OTHER, SELFPAY ==
--- NOTE | 2021-12-03 | DI.US_ITS ---
Exam(s) US OB HERMILO WEIGHT EXAM: US OB HERMILO WEIGHT CLINICAL HISTORY: GROWTH,H/O COVID,Z34.90. TECHNIQUE: Transabdominal obstetrical ultrasound performed. COMPARISON: US US OB 2-3 TRIMESTER from 09/24/2021 FINDINGS: Transabdominal obstetrical ultrasound performed. FINDINGS: Number of fetuses: One. position: Cephalic. Placental location: There is a grade 1 anterior placenta. No evidence of previa. kidneys: The AP diameter of the right renal pelvis is 5 mm and of the left renal pelvis 6 mm. There is again seen mild prominence of the calices. BIOMETRIC DATA: BPD: 74 mm = 29 weeks 6 days HC: 271 mm = 29 weeks 4 days AC: 232 mm = 27 weeks 4 days FL: 54 mm = 28 weeks 5 days EFW: 1204 grms 66% Composite Age: 29 weeks EDC: 02/18/2022 Heart Rate: 155BPM Amniotic fluid index: 15.2 cm. Visually, amount of fluid is within normal limits. IMPRESSION: 1. Single live intrauterine gestation as above. 2. Mild hydronephrosis. Follow-up renal ultrasound is recommended for re-evaluation. 3. Estimated weight is 1204gms. 4. Amniotic fluid index is 15.2 cm. Visually within normal limits. DATA REPOSITORY:
== END 2021-12-03 01:34 ==
PROVIDERS: PCP Family Medicine; Visit Provider Family Medicine
DX: O98.513 Other viral diseases complicating pregnancy, third trimester (principal); Z3A.29 29 weeks gestation of pregnancy; Z86.16 Personal history of COVID-19
CPT/HCPCS: 76816

== ENCOUNTER 2022-01-31 03:00 | Outpatient (RCR) | payer OTHER, SELFPAY ==
--- NOTE | 2022-01-31 15:45 | HOLTER_ITS ---
APPROVED REPORT Conclusion This is a 48-hour Holter monitor Predominant rhythm was sinus with an average heart rate of 87. Minimum was 61, maximum 139 There were very rare atrial and ventricular ectopic beats There was no atrial fibrillation, no high-grade AV block, no pauses greater than 3 seconds There were no apparent patient symptoms
== END 2022-02-19 23:59 | disposition home or self-care (01) ==
LOC: RT 03:00
PROVIDERS: PCP Family Medicine; Visit Provider Family Medicine
DX: O99.891 Other specified diseases and conditions complicating pregnancy (principal); R00.0 Tachycardia, unspecified
CPT/HCPCS: 93225; 93226

== ENCOUNTER 2022-01-31 13:38 | Outpatient (CLI) | payer OTHER, SELFPAY ==
[2022-01-31 16:14] VITALS: BP 132/83; PULSE 86; TEMP 36.8
[2022-01-31 16:18] VITALS: BP 132/83; PULSE 86
[2022-01-31 16:26] VITALS: BP 132/83; PULSE 86; TEMP 36.8
[2022-02-26 09:21] VITALS: BP 132/83; PULSE 86; TEMP 36.8
--- NOTE | 2022-02-26 09:21 | W.OBNST ---
Date of service: 01/31/22 Time of Service: 16:00 NST Evaluation Reason for NST Reasons for Nonstress Test: OTHER, SEE COMMENT Reason for NST Other: hx of covid Gestational Age Gestational Age in Weeks and Days: 39 Weeks and 4Days Test and Monitor Explained Test/Monitor Explained: Test Explained, Monitor Explained and Patient Verbalized Understanding Vital Signs Blood Pressure: 132/83 Pulse: 86 Temperature: 36.8 C Urine Results Urine Protein: Negative Urine Ketones: Negative NST Information Date on Monitor: 01/31/22 Time on Monitor: 16:17 Date off Monitor: 01/31/22 Time off Monitor: 16:45 Total Time on Monitor: 28 NST Interventions: PO Hydration Contraction Frequency: 0 NST Evaluation Patient States Movement: Present FHR Baseline: 130 Variability: Moderate 6-25 bpm Accelerations: 15x15 Decelerations: None NST Results: Reactive Note NST Note Note: NST category 1, reactive. NST Reviewed and Verified by: Popeye Marcum
== END 2022-01-31 16:55 | disposition home or self-care (01) ==
LOC: BCD 13:39 → OBS 16:13
PROVIDERS: PCP Family Medicine; Visit Provider Family Medicine
DX: O09.893 Supervision of other high risk pregnancies, third trimester (principal); Z3A.39 39 weeks gestation of pregnancy; Z86.16 Personal history of COVID-19
CPT/HCPCS: 59025

== ENCOUNTER 2022-02-07 16:32 | Outpatient (CLI) | payer OTHER, SELFPAY ==
[2022-02-07 16:51] VITALS: BP 132/77; PULSE 82; TEMP 36.5
[2022-02-26 09:22] VITALS: BP 132/77; PULSE 82; TEMP 36.5
--- NOTE | 2022-02-26 09:22 | W.OBNST ---
Date of service: 02/07/22 Time of Service: 16:00 NST Evaluation Reason for NST Reasons for Nonstress Test: OTHER, SEE COMMENT Reason for NST Other: Hx of COVID Gestational Age Gestational Age in Weeks and Days: 39 Weeks and 4Days Test and Monitor Explained Test/Monitor Explained: Test Explained, Monitor Explained and Patient Verbalized Understanding Vital Signs Blood Pressure: 132/77 Pulse: 82 Temperature: 36.5 C NST Information Date on Monitor: 02/07/22 Time on Monitor: 16:33 Date off Monitor: 02/07/22 Time off Monitor: 17:02 Total Time on Monitor: 29 NST Interventions: None NST Evaluation Patient States Movement: Present FHR Baseline: 140 Variability: Moderate 6-25 bpm Accelerations: 15x15 Decelerations: None NST Results: Reactive Note NST Note Note: NST Category 1, reactive. NST Reviewed and Verified by: Popeye Marcum
== END 2022-02-07 17:04 | disposition home or self-care (01) ==
LOC: BCD 16:34 → OBS 16:36
PROVIDERS: PCP Family Medicine; Visit Provider Family Medicine
DX: O09.893 Supervision of other high risk pregnancies, third trimester (principal); Z86.16 Personal history of COVID-19; Z3A.39 39 weeks gestation of pregnancy
CPT/HCPCS: 59025

== ENCOUNTER 2022-02-14 17:05 | Outpatient (CLI) | payer OTHER, SELFPAY ==
[2022-02-14 16:32] VITALS: BP 120/74; PULSE 85; TEMP 36.9
--- NOTE | 2022-02-26 09:24 | W.OBNST ---
Date of service: 02/14/22 Time of Service: 16:00 NST Evaluation Reason for NST Reasons for Nonstress Test: OTHER, SEE COMMENT Reason for NST Other: Hx of Covid Gestational Age Gestational Age in Weeks and Days: 39 Weeks and 4Days Test and Monitor Explained Test/Monitor Explained: Test Explained, Monitor Explained and Patient Verbalized Understanding Vital Signs Blood Pressure: 120/74 Pulse: 85 Temperature: 36.9 C Urine Results Urine Protein: Negative Urine Ketones: Negative Urine Glucose: Negative Urine Blood: Negative NST Information Date on Monitor: 02/14/22 Time on Monitor: 16:34 Date off Monitor: 02/14/22 Time off Monitor: 16:58 Total Time on Monitor: 24 NST Interventions: PO Hydration Contraction Frequency: none NST Evaluation Patient States Movement: Present FHR Baseline: 125 Variability: Moderate 6-25 bpm Accelerations: 15x15 Decelerations: None NST Results: Reactive Note NST Note Note: NST Category 1, reactive NST Reviewed and Verified by: Popeye Marcum
[2022-02-26 09:25] VITALS: BP 120/74; PULSE 85; TEMP 36.9
== END 2022-02-14 17:11 | disposition home or self-care (01) ==
LOC: BCD 17:05 → OBS 17:10
PROVIDERS: PCP Family Medicine; Visit Provider Family Medicine
DX: O09.893 Supervision of other high risk pregnancies, third trimester (principal); Z86.16 Personal history of COVID-19; Z3A.39 39 weeks gestation of pregnancy
CPT/HCPCS: 59025

== ENCOUNTER 2022-02-21 13:32 | Outpatient (CLI) | payer OTHER, SELFPAY ==
[2022-02-21 16:34] VITALS: BP 131/78; PULSE 72
[2022-02-21 16:56] VITALS: BP 131/78; PULSE 72; TEMP 36.8
[2022-02-26 09:26] VITALS: BP 131/78; PULSE 72; TEMP 36.8
--- NOTE | 2022-02-26 09:26 | W.OBNST ---
Date of service: 02/21/22 Time of Service: 16:00 NST Evaluation Reason for NST Reasons for Nonstress Test: OTHER, SEE COMMENT Reason for NST Other: History of COVID Gestational Age Gestational Age in Weeks and Days: 39 Weeks and 4Days Test and Monitor Explained Test/Monitor Explained: Test Explained, Monitor Explained and Patient Verbalized Understanding Vital Signs Blood Pressure: 131/78 Pulse: 72 Temperature: 36.8 C NST Information Date on Monitor: 02/21/22 Time on Monitor: 16:32 Date off Monitor: 02/21/22 Time off Monitor: 16:52 Total Time on Monitor: 20 NST Interventions: None Contraction Frequency: Pt denies NST Evaluation Patient States Movement: Present FHR Baseline: 140 Variability: Moderate 6-25 bpm Accelerations: 15x15 Decelerations: None NST Results: Reactive Note NST Note Note: Category 1, reactive NST Reviewed and Verified by: Popeye Marcum
== END 2022-02-21 16:52 | disposition home or self-care (01) ==
LOC: LBN 13:35 → OBS 16:30
PROVIDERS: PCP Family Medicine; Visit Provider Family Medicine
DX: O09.893 Supervision of other high risk pregnancies, third trimester (principal); Z86.16 Personal history of COVID-19; Z3A.39 39 weeks gestation of pregnancy
CPT/HCPCS: 59025

== ENCOUNTER 2022-02-26 08:46 | Outpatient (CLI) | payer OTHER, SELFPAY ==
[2022-02-26 08:54] VITALS: BP 136/64; PULSE 96; TEMP 36.7
[2022-02-26 09:12] VITALS: BP 142/86; PULSE 90
--- NOTE | 2022-02-26 09:18 | W.OBNST ---
Date of service: 02/26/22 Time of Service: 09:18 NST Evaluation Reason for NST Reasons for Nonstress Test: GESTATIONAL HYPERTENSION Gestational Age Gestational Age in Weeks and Days: 39 Weeks and 4Days Test and Monitor Explained Test/Monitor Explained: Test Explained and Monitor Explained Vital Signs Blood Pressure: 136/64 Pulse: 96 Temperature: 36.7 C Urine Results Urine Protein: Negative Urine Ketones: Negative Urine Glucose: Negative Urine Blood: Positive NST Information Date on Monitor: 02/26/22 Time on Monitor: 08:45 Date off Monitor: 02/26/22 Time off Monitor: 09:07 Total Time on Monitor: 22 NST Interventions: PO Hydration NST Evaluation Patient States Movement: Present FHR Baseline: 140 Variability: Moderate 6-25 bpm Accelerations: 15x15 Decelerations: Variable NST Results: Reactive Note NST Note Note: NST reviewed, category 1, reactive. intermittent contractions palpating mild NST Reviewed and Verified by: Popeye Marcmu
[2022-02-26 09:19] VITALS: BP 136/64; PULSE 96; TEMP 36.7
[2022-02-26 09:26] VITALS: BP 125/73; PULSE 80
== END 2022-02-26 09:30 | disposition home or self-care (01) ==
LOC: BCD 08:46 → OBS 08:48
PROVIDERS: PCP Family Medicine; Visit Provider Family Medicine
DX: O99.891 Other specified diseases and conditions complicating pregnancy (principal)
CPT/HCPCS: 59025

== ENCOUNTER 2022-02-26 19:35 | Inpatient (IN) | payer OTHER, SELFPAY ==
[2022-02-26] VITALS (72 sets, daily range): BP systolic 126–142; BP diastolic 66–80; PULSE 65–121; RESP 18; TEMP 36.6; O2SAT 97–99; BMI 28.4
--- NOTE | 2022-02-26 19:44 | HPE_ITS ---
Date of service: 02/26/22 Time of Service: 19:45 Assessment and Plan Assessment and plan (1) : Status: Acute Assessment and plan: 26yo at 39.4w by first tri US with GBS- RNI HepB- Rh+ with only complicated by mild COVID infection. She has been laboring with mild contractions for approx 24 hours, now increasing in intensity. On presentation SVE was 4/50/-1 with bulging bag, and after discussion, I performed AROM with light meconium. She does intend to have an epidural when contractions become more intense, but does not request this yet. Vitals are normal, will offer MMR and Varicella vaccine after delivery. She does not intend to breast feed. Routine labor care. Anticipate . Qualifiers: Weeks of gestation: 39 weeks Qualified Code(s): Z3A.39 - 39 weeks gestation of (2) COVID-19 affecting in second trimester: Status: Acute Assessment and plan: see above (3) Dilation of renal pelvis of fetus: Status: Acute Assessment and plan: Plan renal US on infant after delivery (4) Rubella non-immune status, antepartum: Status: Acute Assessment and plan: see above (5) Maternal varicella, non-immune: Status: Acute Assessment and plan: see above OB-HPI Labor/Delivery History of Present Illness Reason for Visit: RULE OUT LABOR Chief Complaint: Uterine Contractions. SHERLEY Calculator Estimated Delivery Date Method Current WG Current Estimate 03/01/22 Ultrasound #1 39w 4d Other Estimates 02/27/22 LMP (Certain) 39w 6d History of Present Expected Delivery Route/Plan - CNM FOB/ - Mike (first child) BB Formula feeding after informed choice counseling Varicella & Rubella Non-Immune: offer vaccines Specific Issues/Plan 1. Bhakti and Mike () are vaccinated 2. Declines CF and SMA at initial visit, desires Shy Test 08/16: low risk x4, male fetus, AFP desired 3. Has migraine that usually does not cause DUKE but does cause dizziness for which she uses Meclizine a couple times/week 3a. Taking meclizine every few weeks x1. 4. Has a jaw deformity that will require oral surgery which she plans to do - 5. Pea sized mobile lump in left breast at 3 O'Clock position near areola noticeable after + UPT, reassess second trimester 6. Varicella and Rubella non-immune, discuss with patient- offer vaccines post 7. On 18 wk anatomy survey, mild renal enlargement noted. 32 wk repeat scan recommended Assessment: History Reviewed & Current Narrative: 26yo at 39.4w by first tri US with GBS- RNI HepB- Rh+ with only complicated by mild COVID infection. She has been damián since last night approx 6pm and has made servical change since checked in clinic. This morning, SVE was 4/50/-2/mod/post, now it is 4/50/-1/mod/post with bulging bag. She is damián q5min with mild contractions but they have increased in intensity since this morning. She did have a headache this morning but this has resolved. Review of Systems All systems reviewed & are unremarkable except as noted in HPI and below PFSH All Active Problems (Updated 02/26/22 @ 19:57 by Popeye Marcum) (Acute) COVID-19 affecting in second trimester (Acute) 06/24/2021 Dilation of renal pelvis of fetus (Acute) Maternal varicella, non-immune (Acute) Rubella non-immune status, antepartum (Acute) Positive test (Acute) Femoroacetabular impingement of right hip (Acute) Labral tear of right hip joint (Acute) Malocclusion of jaws (Chronic) [facility] [place] [facility] surg Neuropraxia of right lower extremity (Acute) Ankle impingement syndrome, right (Acute) 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 Alvarez-subjective and with hardy testing Tinnitus, bilateral (Chronic) Dr. Alvarez- left worse than right Dysarthria (Acute) Dizziness (Acute) Asthma (Chronic 01/19/17) Migraine with aura (Chronic 01/08/15) Medical History Ankle fracture Ankle joint loose body Asthma (01/19/17) Atypical migraine Blurry vision Chronic fatigue Migraine with aura (01/08/15) Tick bite Vertigo Surgical History Arthroscopy, Ankle R x3 Arthroscopy, Hip R x 2 Family History Mother Ulcerative colitis Father Hemochromatosis Vertigo Grandmother , Heart disease at age 70. Diabetes Essential hypertension Heart disease Hyperlipidemia COPD (chronic obstructive pulmonary disease) Secondhand smoke exposure Grandmother Substance abuse EtOH Thyroid disease Pt not sure what exact issue was, but had part of thyroid removed Grandfather Neoplasm Prostate CA Asthma Maternal Grandfather Emphysema lung late 70's Social History Smoking/Tobacco Use Status: Never Smoking risk assessment performed?: Yes Alcohol Intake: current Alcohol Intake frequency: a few times a month Alcohol type: beer Details: 2-3 TIMES A WEEK Drug use: Never Substance use type: does not use Adopted: No Caregiver/Support person: No Foster care: No Household members: significant other Number of Children: 0 Communication Needs: Corrective Lenses current occupation: PT assist Pets and animals: Yes Pets and animals: dog(s) Current gender identity: female What type of physical activity do you participate in: regular exercise Seatbelt use: always Drive intox or ride w/intox local bulk driver: No Working smoke detector in home: Yes Carbon monox detector in home: Yes Do you feel safe at home: Yes Do you feel safe in your relationship?: Yes Female Reproductive History Menstrual control method: condoms History History 1 Para Hx # Term Pregnancies Multiple births Hx # Pregnancies Ectopic pregnancies AB induced Hx Number of Living Children AB spontaneous Meds Allergies and Home Medications Allergies Allergy/AdvReac Type Severity Reaction Status Date / Time adhesive AdvReac Skin Rash Verified 09/10/21 14:47 iv dye Allergy Severe Emotional Uncoded 09/10/21 14:47 reaction - crying/laughing, scratchy throat peanuts Allergy hives, Uncoded 09/10/21 14:47 vomiting Home Medications Medication Instructions Recorded Confirmed Type meclizine 12.5 mg tablet 12.5 mg PO BID PRN #60 tab-cap 04/07/21 09/10/21 Rx prenat.vits,yony,[id number] 1 tab PO DAILY 05/14/21 09/10/21 History Exam Physical Exam Vital Signs Reviewed: Yes Constitutional Constitutional: no acute distress Detailed Labor and Delivery Exam Dilation: 4 Effacement (%): 50 station: -1 Position: CANDIDA Cervix position: posterior Consistency: medium Pickett Score: Cervical Points Exam 0 1 2 3 Dilation Closed 1-2cm 3-4 cm 5-6cm Effacement 0-30% 40-50% 60-70% 80% Consistency Firm Medium Soft Station -3 -2 -1,0 +1,+2 Position Posterior Mid Anterior PICKETT Score(Cervical Ripeness Score): 6 Amniotic Membrane Status: Ruptured Rupture Method: Artifical Amniotic Fluid: Meconium (light) Monitor Mode: External Contraction Frequency(min): 5 Contraction Duration(sec): 60 Contraction Intensity: Mild Fetus A Heart Rate Baseline: 150 Monitor Accelerations: 15 X 15 Monitor Decelerations: None Variability: Moderate (6-25 BPM) Presentation: Vertex Categories: Category I Date of Membrane Rupture: 02/26/22 Time of Membrane Rupture: 19:41 Assessment Note: Category 1, reactive HEENT Exam HEENT Exam: Normal Respiratory Exam Respiratory Exam: Normal Cardiovascular Exam Cardiovascular Exam: Normal Abdominal Exam Abdominal Exam: Normal Exam Exam: Normal Extremities Exam Extremities Exam: Normal Neurological Exam Neurological Exam: Normal Psychiatric Exam Psychiatric Exam: Normal Results Results Group Beta Strep: Negative Blood Type: O+ Rubella Status: Nonimmune Varicella Immunity: Nonimmune Risk Assessment Risk for Shoulder Dystocia Historical/Initial OB: NEGATIVE FOR: Pelvic Abnormality, Pre- BMI>30, Previous Shoulder Dystocia or Previous Macrosomia Increased Risk?: No Risk for Pre-Eclampsia Daily Dose ASA Indicated: No Yes, if one or more: NEGATIVE FOR: Hx Pre-E/Gest HTN, Chronic HTN, Multiple Gestation, Pre-gestational DM, Renal Disease, Systemic Lupus or APA Syndrome Yes, if 2 or more: POSITIVE FOR: Nulliparity; NEGATIVE FOR: Age>= 35 yrs, >10yr btwn pregnancies, BMI>30, ethinicty, Mother/Sister w/ Pre-E or Previous IUGR Risk for Post- Hemorrhage Initial: NEGATIVE FOR: Multiple Gestation, Previous PPH, Known Clotting Deficiency, Grand Multiparity or Anticoagulation At Risk?: No Risks Reviewed Risks Reviewed Upon Admission: Yes
[2022-02-26 19:59] LABS: HCT 38.3 % (36.0-46.0); HGB 13.3 g/dL (11.2-15.7); MCH 32.5 pg (27.0-33.0); MCHC 34.7 % (32.0-36.0); MCV 94 fL (80-95); MPV 11.7 fL (8.0-11.0); Platelet Count 201 10^3/uL (130-400); RBC 4.09 10^6/uL (3.93-5.22); RDW 12.1 % (11.7-14.6); RDW-SD 41.6 fL; WBC 14.47 10^3/uL (4.4-10.8)
--- NOTE | 2022-02-26 20:47 | W.PM.OBNL1 ---
Date of service: 02/26/22 Time of Service: 20:48 Pelvic Exam Dilation: 6 Effacement (%): 60 station: -1 Position: CANDIDA Cervix Position: mid Consistency: medium Vaginal Exam Presentation: Vertex Contractions Monitor Mode: External Contraction Frequency(min): 5 Contraction Duration(sec): 90 Intensity: Moderate/Strong Fetus A Monitor: External (US) Heart Rate Baseline: 160 Presentation: Vertex Variability: Moderate (6-25 BPM) Categories: Category I FHR Rhythm: Regular Characteristics: Normal Accelerations: 15 X 15 Decelerations: None Amniotic Membrane Status: Ruptured Assessment Note: Category 1 strip, reactive. Meconium in amniotic fluid. Assessment and Plan Assessment and plan (1) : Status: Acute Assessment and plan: Labor progressed quickly since AROM. Anesthesia is on their way to place epidural. She is currently using nitrous. FHT category 1, reactive. Continue present management. Qualifiers: Weeks of gestation: 39 weeks Qualified Code(s): Z3A.39 - 39 weeks gestation of Objective Abnormal lab results 02/26/22 Range/Units 19:50 WBC 14.47 H (4.4-10.8) 10^3/uL MPV 11.7 H (8.0-11.0) fL Temp Pulse Resp BP 36.6 C 74 18 131/79 02/26/22 19:49 02/26/22 19:49 02/26/22 19:49 02/26/22 19:49 Laboratory Results WBC 14.47 10^3/uL (4.4-10.8) H 02/26/22 19:50 RBC 4.09 10^6/uL (3.93-5.22) 02/26/22 19:50 Hgb 13.3 g/dL (11.2-15.7) 02/26/22 19:50 Hct 38.3 % (36.0-46.0) 02/26/22 19:50 MCV 94 fL (80-95) 02/26/22 19:50 MCH 32.5 pg (27.0-33.0) 02/26/22 19:50 MCHC 34.7 % (32.0-36.0) 02/26/22 19:50 RDW 12.1 % (11.7-14.6) 02/26/22 19:50 Plt Count 201 10^3/uL (130-400) 02/26/22 19:50 MPV 11.7 fL (8.0-11.0) H 02/26/22 19:50 Vital Signs Reviewed: Yes Objective Narrative Objective Narrative: Subjective Interval history since last seen: contractions have intensified significantly and she is requesting epidural. Results Hemoglobin/Hematocrit: Hgb 13.3 g/dL (11.2-15.7) 02/26/22 19:50 Hct 38.3 % (36.0-46.0) 02/26/22 19:50 Abnormal Lab Findings: Abnormal Labs 02/26/22 19:50 WBC 14.47 H MPV 11.7 H
--- NOTE | 2022-02-26 21:02 | W.ANESPRE ---
General Info Date of Service Date Performed: 02/26/22 Height: 5 ft 6 in Weight: 79.832 kg Body Mass Index (BMI): 28.4 Meds Allergies and Home Medications Allergies Allergy/AdvReac Type Severity Reaction Status Date / Time adhesive AdvReac Skin Rash Verified 09/10/21 14:47 iv dye Allergy Severe Emotional Uncoded 09/10/21 14:47 reaction - crying/laughing, scratchy throat peanuts Allergy hives, Uncoded 09/10/21 14:47 vomiting Home Medication Medication Instructions Recorded meclizine 12.5 mg tablet 12.5 mg PO BID PRN #60 tab-cap 04/07/21 prenat.vits,yony,suy-wzar-busks 1 tab PO DAILY 05/14/21 Current Visit Medications: Current Medications Generic Name Dose Route Start Last Admin Trade Name Freq PRN Reason Stop Dose Admin Bupivacaine HCl 0 ml 02/26/22 21:01 Bupivacaine 0.25% Pres-Free 10 Ml Vial EP 02/26/22 21:02 NOW ONE Fentanyl 0 mcg 02/26/22 21:01 Fentanyl 100 Mcg/2 Ml Vial EP 02/26/22 21:02 NOW ONE Fentanyl/Ropivacaine 100 ml 02/26/22 21:15 Fentanyl/Ropivacaine 2 Mcg/Ml And 0.125% 100 Ml Bag EP DIRECTED NOEL Sodium Chloride 500 mls @ 0 mls/hr 02/26/22 19:35 Saline 500ml Bag IV PRN PRN As Directed Ringer's Solution 500 mls @ 500 mls/hr 02/26/22 21:01 IV 02/26/22 22:00 BOLUS ONE IV Miscellaneous Supplies 1 each 02/26/22 19:45 Iv Access IV DIRECTED NOEL Sodium Chloride 0 ml 02/26/22 19:35 Normal Saline Flush 10 Ml Syr IVP PRN PRN PFSH Active Problems Active Problems: Problem Status Onset Code Z34.90 COVID-19 affecting in second trimester O98.512, U07.1 Dilation of renal pelvis of fetus Maternal varicella, non-immune O09.899, Z28.3 Rubella non-immune status, antepartum O99.891, Z28.3 Positive test Z32.01 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 Labral tear of right hip joint S73.191A 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 Ankle impingement syndrome, right 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, 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, 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 Stress fracture of foot M84.376A 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, 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 Chronic fatigue R53.82 Asymmetrical hearing loss of left ear H91.8X2 Tinnitus, bilateral H93.13 Dysarthria R47.1 Dizziness R42 Asthma 01/19/17 J45.909 Migraine with aura 01/08/15 G43.109 Medical History Medical History Ankle fracture Ankle joint loose body Asthma (01/19/17) Atypical migraine Blurry vision Chronic fatigue Migraine with aura (01/08/15) Tick bite Vertigo Surgical History Surgical History Arthroscopy, Ankle R x3 Arthroscopy, Hip R x 2 Tobacco Smoking/Tobacco Use Status: Never Passive smoking exposure: No Alcohol Alcohol Intake: current Alcohol intake frequency: a few times a month Alcohol type: beer Details: 2-3 TIMES A WEEK Substance Use Substance use: Never Substance use type: does not use Prental History History 1 Para Hx # Term Pregnancies Multiple births Hx # Pregnancies Ectopic pregnancies AB induced Hx Number of Living Children AB spontaneous Vital Signs and Lab Results Vital Signs Most Recent Vital Signs in EMR: Most Recent Vital Signs Temp Pulse Resp BP 36.6 C 74 18 131/79 02/26/22 19:49 02/26/22 19:49 02/26/22 19:49 02/26/22 19:49 Lab Results Result Diagrams: 02/26/22 19:50 Blood Type / Crossmatch: Patient ABO/Rh O Positive 02/26/22 Complete Blood Count: White Blood Count 14.47 10^3/uL (4.4-10.8) H 02/26/22 19:50 02/26/22 Red Blood Count 4.09 10^6/uL (3.93-5.22) 02/26/22 19:50 02/26/22 Hemoglobin 13.3 g/dL (11.2-15.7) 02/26/22 19:50 02/26/22 Hematocrit 38.3 % (36.0-46.0) 02/26/22 19:50 02/26/22 Platelet Count 201 10^3/uL (130-400) 02/26/22 19:50 02/26/22 Complete Metabolic Panel: No Data to Display Liver Function Panel: No Data to Display Coagulation Panel: No Data to Display Cardiac Panel: No Data to Display Arterial Blood Gas: No Data to Display Venous Blood Gas: No Data to Display Pancreas Panel: No Data to Display Thyroid Panel: No Data to Display Infectious Disease: No Data to Display Blood Cultures: No Data to Display Toxicology Panel: No Data to Display Panel: No Data to Display Anesthesia Assessment and Plan Anesthesia History Personal History: No History of Anesthesia Complications Family History: No Family History of Anesthesia Complications Exercise Tolerance Exercise Tolerance: Metabolic Equivalents>4 Pertinent Negatives Pertinent Negatives: No Symptoms of GERD, No Major Cardiovascular Symptoms or Complaints, No Major Pulmonary Symptoms or Complaints and No History of CVA/TIA Cardiac & Pulmonary Exam Cardiac Exam: Normal S1/S2 Heart Sounds Pulmonary Exam: Clear Bilateral Breath Sounds Implantable Cardiac Device Does patient have a Pacemaker or an ICD?: No Airway Exam Known Difficult Airway: No Mallampati Class: 2 Mouth Opening: Normal (> 3cm) Thyromental Distance: Greater than 3 cm Neck Range of Motion: Full ROM Neck Circumference: Normal Teeth Condition: Normal Dentition ASA Classification ASA Score: ASA 2 Emergency Case?: No NPO Status NPO Status: NPO Clears >2 hours, Solids >8 hours Status Status: Confirmed Anesthesia Plan Resuscitation Status: Full Code Anesthesia Technique: Epidural Anesthesia Airway Planned: Natural Airway Pain Management: Surgeon and patient request nerve block Monitors Used: Standard Monitors
[2022-02-26] MEDS: Lactated Ringers 500 ML IV (21:20)
[2022-02-26] MEDS: Bupivacaine 0.25% Pres-Free 10 ML VIAL EP (21:35)
--- NOTE | 2022-02-26 21:45 | W.ANESNEU ---
Epidural/Spinal Catheter Date Performed: 02/26/22 Procedure Start: : Procedure Stop: : Requesting Provider: Popeye Marcum Procedure Location: Obstetrics Reason Performed: Labor Epidural Standard Monitors Applied: Blood Pressure, SpO2 and See EMR for corresponding vital signs Patient Position: Sitting Sedation Given (Indicate Dose Given): No Sedation given Patient Mental Status: Awake Sterility: Hand Hygiene, Surgical Cap, Surgical Mask, Sterile Gloves, Sterile Drape/Sheet and Chlorhexidine Procedure Location: L3-L4 Interspace Epidural Needle: Tuohy 17 Guage Needle Length: 3.5 Inch Needle Approach: Midline Epidural Procedure: Skin Prepped, Sterile Drape Placed, 1% Lidocaine to skin and subcutaneous tissue with 25G needle, Tuohy Needle placed, SAMMIE to Saline Used, Epidural Catheter Placed, Negative Heme and Negative CSF Flow Catheter Placed?: Catheter Placed Test Dose (Indicate Dose Given): 5ml 1.5% Lidocaine with 1:200K Epinephrine Given and Negative Test Dose Loss of Resistance Depth (cm): 6 Catheter depth at skin (cm): 13 Dressing: Sorbaview Dressing Placed, Mastisol Used and Dressing reinforced with Tape Epidural Provider Bolus (Indicate Dose Given): Total bolus dose given in 3-5 ml divided doses, Total Bupivacaine 0.25% Given (ml) Dose:: 3 ml and Other (Ropivacaine 0.125 with 2mcg/ml Fentanyl) Medication/Dose:: 10 Additives (Indicate Dose Given ): None Infusion Medication: Medication Infusion Began Medication Infusion: Other (Ropivacaine 0.125 with 2mcg/ml Fentanyl) Maintenance Infusion Rate (ml/hour): 10 PCEA Bolus Dose (ml): 5 Block Level: T12 (immediately after) Paresthesia: None Ultrasound: Not Used Number of Attempts (See previous attempts in note section): 1 Procedure Tolerated: No Complications Procedure Outcome: Successful Performed By: Darnell José
--- NOTE | 2022-02-26 21:56 | W.PM.OBNL1 ---
Date of service: 02/26/22 Time of Service: 21:56 Pelvic Exam Dilation: 7 Effacement (%): 80 station: -1 Position: CANDIDA Cervix Position: anterior Consistency: soft Vaginal Exam Presentation: Vertex Contractions Monitor Mode: External Contraction Frequency(min): 2 Contraction Duration(sec): 60 Intensity: Moderate/Strong Fetus A Monitor: External (US) Heart Rate Baseline: 135 Presentation: Vertex Variability: Moderate (6-25 BPM) Categories: Category I FHR Rhythm: Regular Characteristics: Normal Accelerations: 15 X 15 Decelerations: None Amniotic Membrane Status: Ruptured Assessment and Plan Assessment and plan (1) : Status: Acute Assessment and plan: Bhakti is doing well and very comfortable with her epidural now. Making good progress. No changes to plan of care. Qualifiers: Weeks of gestation: 39 weeks Qualified Code(s): Z3A.39 - 39 weeks gestation of Objective Abnormal lab results 02/26/22 Range/Units 19:50 WBC 14.47 H (4.4-10.8) 10^3/uL MPV 11.7 H (8.0-11.0) fL Temp Pulse Resp BP Pulse Ox 36.6 C 87 18 131/76 99 02/26/22 19:49 02/26/22 21:55 02/26/22 19:49 02/26/22 21:52 02/26/22 21:52 Laboratory Results WBC 14.47 10^3/uL (4.4-10.8) H 02/26/22 19:50 RBC 4.09 10^6/uL (3.93-5.22) 02/26/22 19:50 Hgb 13.3 g/dL (11.2-15.7) 02/26/22 19:50 Hct 38.3 % (36.0-46.0) 02/26/22 19:50 MCV 94 fL (80-95) 02/26/22 19:50 MCH 32.5 pg (27.0-33.0) 02/26/22 19:50 MCHC 34.7 % (32.0-36.0) 02/26/22 19:50 RDW 12.1 % (11.7-14.6) 02/26/22 19:50 Plt Count 201 10^3/uL (130-400) 02/26/22 19:50 MPV 11.7 fL (8.0-11.0) H 02/26/22 19:50 Patient ABO/Rh O Positive 02/26/22 19:50 Antibody Screen NEGATIVE 02/26/22 19:50 Vital Signs Reviewed: Yes Subjective Interval history since last seen: Epidural is now in, and she is much more comfortable. No new complaints. Results Hemoglobin/Hematocrit: Hgb 13.3 g/dL (11.2-15.7) 02/26/22 19:50 Hct 38.3 % (36.0-46.0) 02/26/22 19:50 Abnormal Lab Findings: Abnormal Labs 02/26/22 19:50 WBC 14.47 H MPV 11.7 H
[2022-02-26 22:41] LABS: Source Nasal/Nares
[2022-02-26 23:22] LABS: COVID-19 PCR Negative (Negative)
[2022-02-27] VITALS (31 sets, daily range): BP systolic 118–152; BP diastolic 58–81; PULSE 61–151; RESP 19–20; TEMP 36.3–37.2; O2SAT 19–98
[2022-02-27] MEDS: Oxytocin/Normal Saline 30 UNIT/500 ML BAG 95 UNITS IV (01:40)
[2022-02-27] MEDS: Lidocaine 1% Multi-Dose 20 ML VIAL IJ (01:40)
--- NOTE | 2022-02-27 02:27 | W.OBDELIVERY ---
Date of service: 02/27/22 Time of Service: 02:27 OB Labor/ Delivery Information Baby A Delivery Delivery Method: Spontaneaous Presentation: Vertex Cephalic Position: Vertex Vertex Position: Left Occipital Anterior Breech Position: N/A Cord Description-Baby A: 3 Vessels Amniotic Fluid: Meconium Estimated Blood Loss: 200 Delivery Outcome: Liveborn Infant Complications: none Transferred: Remains with Mother Note: Bhakti prodromed for over 24 hours before we performed AROM and she quickly went into active labor. She progressed well and soon reached complete without any complications. Epidural was effective for pain once placed. She pushed for just over an hour again without complication. She delivered a viable term male infant in CANDIDA position. He was placed immediately on moms abdomen. After cord stopped pulsating, cord was clamped and cut by dad. Apgars were 8 and 9. Placenta delivered spontaneously, 3 vessel cord, intact. She did sustain a significant 2nd degree laceration repaired as below. Mom was resting comfortably after delivery with baby, who took 20cc formula within the first hour. Anticipate routine post care. Providers Doctor: Popeye Marcum Tapper Operator: Popeye Marcum Nurse: Sharri Coleman Nurse: Jose A Coleman Labor/Delivery Information Number of Babies in Womb: 1 Steroids Given: None Reason Steroids Not Administered: N/A Group Beta Strep: Negative Antibiotics Administered: No Rubella Status: Nonimmune Blood Type: O+ Varicella Immunity: Nonimmune Born En Route: No Maternal Complications: None Shoulder Dystocia: No Stages of Labor Onset of Labor Date: 02/25/22 Onset of Labor Time: 17:00 Complete Dilatation Date: 02/27/22 Complete Dilatation Time: 00:25 Labor - Stage 1 Duration: 48 hours and 0 minutes ROM Baby A: 02/26/22 ROM Baby A: 19:41 ROM Total Time- Baby A: [id number] Delivery Date-Baby A: 02/27/22 Delivery Time-Baby A: 01:34 Labor Stage 2 Duration: 1 hours and 9 minutes Placenta Delivery Date-Baby A: 02/27/22 Placenta Delivery Time-Baby A: 01:44 Labor-Stage 3 Duration: 10 minutes Total Length of Labor-Baby A: 32 hours and 34 minutes Placenta Cultured: No Placenta Status: Delivered Baby A Gender: Male Gestational Status: Term (39-41.6 wks) Gestational Age in Weeks/Days: 39 Weeks and 5 Days Score-1 Minute Interval(Baby A) Heart Rate-1 minute: 100 BPM or Greater Respiratory Effort- 1 minute: Slow Respiration/Weak Cry Muscle Tone-1 minute: Active Movement Reflex Response-1 minute: Prompt Response Color-1 minute: Bluish Hands or Feet Total Score-1 minute: 8 Score-5 Minute Interval(Baby A) Heart Rate- 5 minute: 100 BPM or Greater Respiratory Effort-5 minute: Spontaneous/Strong Cry Muscle Tone-5 minute: Active Movement Reflex Response-5 minute: Prompt Response Color-5 minute: Bluish Hands or Feet Total Score- 5 minute: 9 Interventions Repair of Laceration Type: Perineal, Laceration Extension: Second Degree. Sponge Count Correct: Yes, Sharp Count Correct: Yes. Laceration Repair Note: second degree perineal laceration with vaginal extension repaired using 3-0 vicryl starting at the apex and placing a row of dep sutures leading to the right perineal extension. A second 3-0 vicryl was then used to close the left extension and bring the sides together. Hemostasis was achieved and acceptable cosmetic outcome.
[2022-02-27] MEDS: Ibuprofen 600 MG TAB PO ×4 (03:16→21:12)
[2022-02-27] MEDS: Acetaminophen 325 MG TAB 650 MG PO ×4 (03:16→21:12)
[2022-02-27] MEDS: Dibucaine 1% 28 GM TUBE TP (08:31)
[2022-02-27] MEDS: Hamamelis Leaf/Glycerin 100 EACH BOX PR (08:31)
[2022-02-27] MEDS: Docusate Sodium 100 MG CAP PO ×2 (08:55→23:26)
[2022-02-28] MEDS: Acetaminophen 325 MG TAB 650 MG PO (06:24)
[2022-02-28] MEDS: Ibuprofen 600 MG TAB PO (06:24)
--- NOTE | 2022-02-28 06:56 | DSE_ITS ---
Date of service: 02/28/22 Time of Service: 06:56 DS: Diagnosis Discharge Diagnosis (1) : Status: Acute Asessment and Plan: 26yo [id number] with Rh+ RNI VNI HepB- GBS- presented in active labor and now sp with 2nd degree laceration. Bhakti is doing well. She has been voiding and has had 3 BMs. Pain well controlled with NSAIDs. Bleeding decreasing. Fundus firm 2cm below umblicus. Up and about without issue. She has elected to bottle feed, no significant issues with engorgement yet. Discussed management. Will DC home today with follow up 6wks for PP check. Discharge Plan Disposition Patient Disposition: HOME Condition: Good Discharge Details Reason For Visit: RULE OUT LABOR Admit Date/Time: 02/26/22 19:35 Admit Provider: Popeye Marcum Attending Provider: Popeye Marcum Primary Care Provider: Popeye Marcum Home Meds and New Rx's Prescriptions: No Action prenat.vits,yony,jlv-yidg-lnwtf Tablet 1 tab PO DAILY 0RF meclizine 12.5 mg tablet 12.5 mg PO BID PRN (Reason: motion sickness) Qty: 60 0RF Rx Instructions: Take as needed for motion sickness Discharge Instructions Stand Alone Forms: BC Post Vaginal Deliver Activity:: Activity as Tolerated Equipment/Supplies:: No Equipment Needed Diet:: As Tolerated Discharge Orders Discharge Orders: Discharge Order (Routine); Ordered 02/28/22 Ordered By: Popeye Marcum OB:DS Summary Summary Vaginal Delivery Method: Spontaneaous Episiotomy Description: None Laceration Description: Perineal Laceration Extension: Second Degree Contraception Discussed Contraception Discussed: Yes, [place] Infant Gender-Baby A: Male weight: 3900 g Status at Discharge Functional status at discharge: independent ambulation Overall status at discharge: patient is back to baseline Mental Status: mental status grossly normal Speech and Movement: speech and movement normal Mood: congruent mood Affect: normal affect Time Spent with Patient providing and/or coordinating discharge services: Less than 30 minutes Hospital Course Bhakti presented in early labor and then progressed quickly once AROM performed. Labor without complication. Delivered CANDIDA with apgars of 8 and 9. 2nd degree laceration repaired. Exam Physical Exam Vital signs: Temp Pulse Resp BP Pulse Ox 36.3 C L 69 19 123/80 96 02/27/22 23:33 02/27/22 23:33 02/27/22 23:33 02/27/22 15:05 02/27/22 15:05 Vital Signs Reviewed: Yes Constitutional Constitutional: no acute distress HEENT Exam HEENT Exam: Normal Cardiovascular Exam Cardiovascular Exam: Normal Fundal Exam Fundus: Below Umbilicus and Firm Rectal Exam Rectal Exam: Normal Extremities Exam Extremity Exam: Normal Skin Exam Skin Exam: Normal Neurological Exam Neurological Exam: Normal Psychiatric Exam Psychiatric Exam: Normal PFSH All Active Problems (Updated 02/26/22 @ 19:57 by Popeye Marcum) (Acute) COVID-19 affecting in second trimester (Acute) 06/24/2021 Dilation of renal pelvis of fetus (Acute) Maternal varicella, non-immune (Acute) Rubella non-immune status, antepartum (Acute) Positive test (Acute) Femoroacetabular impingement of right hip (Acute) Labral tear of right hip joint (Acute) Malocclusion of jaws (Chronic) 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 Alvarez-subjective and with hardy testing Tinnitus, bilateral (Chronic) Dr. Alvarez- left worse than right Dysarthria (Acute) Dizziness (Acute) Asthma (Chronic 01/19/17) Migraine with aura (Chronic 01/08/15) Medical History Ankle fracture Ankle joint loose body Asthma (01/19/17) Atypical migraine Blurry vision Chronic fatigue Migraine with aura (01/08/15) Tick bite Vertigo Surgical History Arthroscopy, Ankle R x3 Arthroscopy, Hip R x 2 Family History Mother Ulcerative colitis Father Hemochromatosis Vertigo Grandmother , Heart disease at age 70. Diabetes Essential hypertension Heart disease Hyperlipidemia COPD (chronic obstructive pulmonary disease) Secondhand smoke exposure Grandmother Substance abuse EtOH Thyroid disease Pt not sure what exact issue was, but had part of thyroid removed Grandfather Neoplasm Prostate CA Asthma Maternal Grandfather Emphysema lung late 70's Social History Smoking/Tobacco Use Status: Never Smoking risk assessment performed?: Yes Alcohol Intake: current Alcohol Intake frequency: a few times a month Alcohol type: beer Details: 2-3 TIMES A WEEK Drug use: Never Substance use type: does not use Adopted: No Caregiver/Support person: No Foster care: No Household members: significant other Number of Children: 0 Communication Needs: Corrective Lenses current occupation: PT assist Pets and animals: Yes Pets and animals: dog(s) Current gender identity: female What type of physical activity do you participate in: regular exercise Seatbelt use: always Drive intox or ride w/intox commercial collections driver: No Working smoke detector in home: Yes Carbon monox detector in home: Yes Do you feel safe at home: Yes Do you feel safe in your relationship?: Yes Female Reproductive History Menstrual control method: condoms History History 1 Para Hx # Term Pregnancies Multiple births Hx # Pregnancies Ectopic pregnancies AB induced Hx Number of Living Children AB spontaneous DS: Data Vitals/I&O Vitals and I&O: Vital Signs Temperature 36.3 C L 02/27/22 23:33 Pulse 69 02/27/22 23:33 Pulse Rhythm Regular 02/27/22 20:36 Respiratory Rate 19 02/27/22 23:33 Respiratory Depth Normal 02/27/22 20:36 Blood Pressure 123/80 02/27/22 15:05 Blood Pressure Mean 94 02/27/22 15:05 Pulse Oximetry 96 02/27/22 15:05 Oxygen Delivery Method Room Air 02/26/22 19:49 Oxygen Flow Rate 0 02/26/22 19:49 Pain Level 4 02/27/22 15:05 Intake & Output 02/27/22 02/27/22 02/28/22 11:59 23:59 11:59 Intake Total 500 / 500 Output Total 1800 / 1800 Balance -1300 / -1300 Intake: IV 500 / 500 Output: Urine 1800 / 1800 Other: Urine Color Yellow
[2022-02-28 08:57] VITALS: BP 128/84; PULSE 83; RESP 16; TEMP 36.8
[2022-02-28] MEDS: Docusate Sodium 100 MG CAP PO (09:20)
[2022-02-28] MEDS: Varicella Virus Vaccine (Live) 0.5 ML SC (09:21)
[2022-02-28] MEDS: Measles, Mumps, & Rubella Vaccine 0.5 ML VIAL SC (09:22)
--- NOTE | 2022-03-01 08:16 | W.ANESPOSTOP ---
Postoperative Evaluation Date, Time and Location Date Performed: 03/01/22 Time Performed: 08:16 Patient Location: Obstetrics Vital Signs Most Recent Imported Vital Signs: Most Recent Vital Signs Temp Pulse Resp BP Pulse Ox 36.8 C 83 16 128/84 96 02/28/22 08:57 02/28/22 08:57 02/28/22 08:57 02/28/22 08:57 02/27/22 15:05 Pain Score Most Recent Pain Score: Most Recent Pain Score Pain Level [Abdomen] 4 02/27/22 15:05 Pain Level 4 02/27/22 15:00 Assessment Mental Status: Awake (Alert & Oriented to Patient Baseline) Airway and Respiratory Function: Patent airway with normal (patient baseline) respiratory exam Cardiovascular Function: Hemodynamically Stable Hydration Status: Adequately Hydrated Nausea & Vomiting: No Nausea or Vomiting Pain: Pain is tolerable per patient Peripheral Nerve Block: Other (Patient discharged prior to anesthesia being able to see them. Per chart review: Epidural appropriately resolved, patient denied complaint. Per jack tamp operator catheter removed with tip intact.)
== END 2022-02-28 10:15 | disposition home or self-care (01) | DRG 807 ==
LOC: OBS 20:10 → BCD 02-28 11:03
PROVIDERS: Admitting Provider Family Medicine; PCP Family Medicine; Visit Provider Family Medicine
DX: O99.52 Diseases of the respiratory system complicating childbirth (principal); Z37.0 Single live birth; Z3A.39 39 weeks gestation of pregnancy; O99.354 Diseases of the nervous system complicating childbirth; J45.909 Unspecified asthma, uncomplicated; O70.1 Second degree perineal laceration during delivery; G43.109 Migraine with aura, not intractable, without status migrainosus; R53.82 Chronic fatigue, unspecified; S84.91XA Injury of unspecified nerve at lower leg level, right leg, initial encounter; X58.XXXA Exposure to other specified factors, initial encounter; Z86.16 Personal history of COVID-19
CPT/HCPCS: 36415; 85027; 86850; 86900; 86901; 87635; 96372; J3490

== ENCOUNTER 2023-04-11 14:15 | Outpatient (CLI) | payer OTHER, SELFPAY ==
--- NOTE | 2023-04-11 14:00 | DI.RAD_ITS ---
Exam(s) XR HIP RT COMPLETE AP PELVIS EXAM: XR HIP RT COMPLETE AP PELVIS CLINICAL HISTORY: right hip pain. TECHNIQUE: 2D digital imaging was performed of the right hip. Two images were obtained. AP pelvis a nd lateral right hip views were obtained. COMPARISON: CR PELVIS AP from 01/19/2017 FINDINGS: BONES: No acute fracture is present. No bony destructive lesion is seen. JOINTS: No dislocation present. SOFT TISSUE: There is an IUD in position. IMPRESSION: Unremarkable radiographs of the right hip. Unremarkable radiographs of the pelvis. DATA REPOSITORY: RADIATION DOSE DELIVERED:
== END 2023-04-11 14:16 | disposition home or self-care (01) ==
LOC: DIORS 14:15
PROVIDERS: PCP Family Medicine; Referring Provider Family Medicine; Visit Provider Student in an Organized Health Care Education/Training Program
DX: M25.551 Pain in right hip (principal)
CPT/HCPCS: 73502

== ENCOUNTER 2023-05-01 01:25 | Outpatient (CLI) | payer OTHER, SELFPAY ==
--- NOTE | 2023-05-01 09:05 | DI.MRI_ITS ---
Exam(s) MR LOWER JOINT RT WO EXAM: MR LOWER JOINT RT WO CLINICAL HISTORY: R HIP PAIN,? labral tear,s73.191a TECHNIQUE: Multiplanar multisequence MRI of the hip was performed. COMPARISON: MR MRI LO EXTREMITY+JNT WO CONT-RT from 09/06/2011 FINDINGS: MARROW:There is no evidence of fracture, bone contusion, nor avascular necrosis. There are no signif icant osseous lesions.There is no significant osseous excrescence at the femoral head-neck junction t o suggest the presence of cam-type YULISA. EFFUSION: There is no evidence of joint effusion. BURSAE: There is no evidence of trochanteric bursitis. There is no evidence of iliopsoas bursitis. HIP JOINT SPACE: No obvious chondral defects.There is no hypertrophy of the ligamentum teres nor sign al abnormality at the fovea centralis. LABRUM: On the axial images there is a linear fluid interposition between the labrum and S tablets. This is seen on only 1 image (image 24). ISCHIAL TUBEROSITY/HAMSTRING: There is no abnormal intraosseous signal in the ipsilateral ischial tub erosity nor tear of the common hamstrings tendon attachment site at this level. OTHER: There is no abnormal intramuscular signal within the quadratus femoris to suggest the presence of impingement syndrome at this level. IMPRESSION: 1. Linear fluid signal between the anterior labrum and osseous acetabulum, either labral tear or subl abral sulcus. Tear is not seen on the other sequences. 2. No evidence of stress fracture, avascular necrosis, joint effusion, nor other significant findings . DATA REPOSITORY:
--- NOTE | 2023-05-01 18:33 | DI.VRAD_ITS ---
PROCEDURE INFORMATION: Exam: MR Right Lower Extremity Joint Without Contrast; Hip Exam date and time: 05/01/2023 8:33 AM Age: 27 years old Clinical indication: Right; Patient HX: R hip pain, ? labral tear TECHNIQUE: Imaging protocol: Magnetic resonance imaging of the right lower extremity joint without contrast. Exam focused on the hip. COMPARISON: MR LOWER JOINT RT WO 05/01/2020 9:04 AM FINDINGS: Bones/joints: No bone abnormalities. Articular cartilage is normal. No joint effusion. Labrum: There is a concern for full-thickness tear within the anterior right labrum (image 24, series [id number]). TENDONS: Tendons of iliopsoas group: No evidence of tear. Tendons of medial compartment of thigh: No evidence of tear. Tendons of lateral rotators of hip: No evidence of tear. Tendons of gluteal group: No evidence of tear. Soft tissues: Incidentally noted is a central linear hypointensity within the uterus, possibly an intrauterine device or a congenital uterine anomaly. IMPRESSION: 1. Concern for full-thickness tear in the right anterior labrum versus a prominent sublabral sulcus. MRI arthroscopy may be considered for further evaluation. 2. No evidence of tendinous or ligamentous injury. 3. Incidentally noted central linear hypointensity within the uterus, possibly an intrauterine device or a congenital uterine anomaly. Correlate with clinical findings. Dictated and Authenticated by: Darline Salazar MD. Ordering:CHAUNCEY Miller MD
== END 2023-05-01 01:45 ==
LOC: DI 01:25
PROVIDERS: PCP Family Medicine; Visit Provider Student in an Organized Health Care Education/Training Program
DX: S73.191A Other sprain of right hip, initial encounter (principal); X58.XXXA Exposure to other specified factors, initial encounter; M24.859 Other specific joint derangements of unspecified hip, not elsewhere classified
CPT/HCPCS: 73721

== ENCOUNTER → 2023-06-14 02:12 | Outpatient (CLI) | payer OTHER, SELFPAY ==
--- NOTE | 2023-06-14 14:39 | DI.RAD_ITS ---
Exam(s) RF JOINT INJ. FLUORO GUID RAD EXAM: RF JOINT INJ. FLUORO GUID RAD CLINICAL HISTORY: R HIP PAIN,FLUORO GUIDED INJECTION,LABRAL TEAR,S73.191A. The Patient has had pers istent right hip pain. Noninvasive measures have been tried. To serve as both diagnostic and therap eutic, an injection under fluoroscopy was recommended. The risks of the procedure were discussed wit h their Orthopedic provider and the patient elected to proceed. TECHNIQUE: 2D and realtime digital imaging was performed. CONTRAST MATERIAL: Water soluble contrast was utilized. COMPARISON: No exams were available for comparison FINDINGS: The Patient was greeted in the fluoroscopy room. The correct side was identified and the consent was reviewed with the patient and was signed. The patient was properly positioned on the fluoroscopy ta ble. The right hipwas then prepped with Chloraprep and draped. The right hip injection starting poi nt was identified by the bony landmarks and fluoroscopy. The skin and soft tissue in the tract of th e injection was anesthetized with 1% Lidocaine. A spinal needle was then inserted into the righthip joint under fluoroscopic guidance. A small amount of Omnipaque solution was injected to confirm intr aarticular placement. Once confirmed, the righthip was injected with 5cc of a solution containing 0. 5% Bupivaine and 80 mg of Depo-Medrol. A bandaid was placed on the injection site. The patient angy rated the procedure well and left the department in good condition. IMPRESSION: Successful right hip injection. RADIATION DOSE DELIVERED: Danielle,r=4.06 mGy
[2023-06-14] MEDS: methylPREDNISolone ACETATE 80 MG/ML VIAL IM (14:43)
[2023-06-14] MEDS: Bupivacaine 0.5% Pres-Free 10 ML VIAL 5 ML IJ (14:46)
[2023-06-14] MEDS: Omnipaque 300 MG/ML 10 ML BTL 5 ML IJ (14:47)
== END ==
PROVIDERS: PCP Family Medicine; Visit Provider Student in an Organized Health Care Education/Training Program
DX: S73.191A Other sprain of right hip, initial encounter (principal); X58.XXXA Exposure to other specified factors, initial encounter
CPT/HCPCS: 20610; 77001; J1040

== ENCOUNTER 2024-05-29 19:34 | Emergency (ER) | payer OTHER, SELFPAY ==
[2024-05-29 19:41] VITALS: RESP 14; TEMP 36.9; O2SAT 98
[2024-05-29 19:47] VITALS: BP 123/63
--- NOTE | 2024-05-29 19:47 | ED.GENADUL_ITS ---
Discharge Plan Disposition Patient Disposition: Home Condition: Stable Discharge Details Clinical Impression: Dog bite of right thigh Primary Care Provider: Popeye Marcum ED Provider: Manpreet Xiao Home Meds and New Rx's Prescriptions: New amoxicillin-pot clavulanate 875-125 mg tablet 1 tab PO BID 14 Days Qty: 28 0RF Continued escitalopram oxalate [Lexapro] 20 mg tablet 20 mg PO DAILY meclizine 12.5 mg tablet 12.5 mg PO BID PRN (Reason: motion sickness) Qty: 60 0RF Rx Instructions: Take as needed for motion sickness Discharge Instructions Instructions: Amoxicillin and Clavulanate, Animal Bites ED Additional Instructions: You were seen in the emergency department for the dog bite of your right thigh, your dog shots are up-to-date, your tetanus is up-to-date, we consulted the surgery on your wound and it was cleaned thoroughly and packed with antibiotic impregnated gauze. You have a follow-up at the surgery clinic for dressing change on Monday. Restarted you on IV antibiotics and I have sent a prescription for Augmentin to the pharmacy here at the hospital. Please take this as directed, and presenting home with 1 dose this evening to take before bedtime. Please carefully monitor your wound as dog bites have a high risk for infection, these are preferably not closed by suture as this highly increases risk of infection. Return for red streaking up the leg, increasing pain and fever, warmth to touch, nausea, weakness. Please use therapeutic dosing of Tylenol (acetamenophen) & Advil (ibuprofen) in an alternating fashion as follows: Take 1000mg of Tylenol every 6 hours without missing doses- that is 4 times per day. [place] in between the Tylenol dosings, take 400-600mg of Advil also on a 6 hour schedule, that is also 4 times per day. The daily maximum dosing of Tylenol is 4000mg, and the daily maximum dosing of Advil is 2400mg. This is safe to do for weeks. Please note that some common cold medications & prescription pain medications may contain acetamenophen and you need to read OTC drug labels and factor that in to maximum daily dosings. Use the provided hydrocodone tablets to go for breakthrough pain as needed. - please note this has 325mg of Tylenol in it. Referrals: [facility] [Provider Group] Popeye Marcum [Primary Care Provider] - Discharge Data Discharge Date/Time-TO BE ENTERED AT DEPARTURE: 05/29/24 21:38 HPI General Date/Time Provider Initiated Documentation: 05/29/24 19:47 . HPI Narrative: 28 year-old female presents to ED today by POV/ambulating with her spouse with a chief complaint of dog bite to R medial thigh- it was her two dogs that were fighting, she got in between them and was bitten briefly but deeply to the R thigh with onset just prior to arrival. Patient's dogs shots are all up to date, her Tdap is up to date. Quality described as painful laceration to R inner thigh, lengthy, with one puncture just lateral and superior, no radiation to severe bruising or swelling, numbness/tingling distally, inability to ambulate, has very minor abrasions to hands. Severity is described as moderate to severe. Palliating factors include nothing specific attempted. Provoking factors include nothing specific. Patient not anticoagulated. Related Data Home Medications ?Medication ?Instructions ?Recorded ?Confirmed meclizine 12.5 mg tablet 12.5 mg PO BID PRN motion sickness 04/07/21 05/29/24 #60 tab-caps escitalopram oxalate 20 mg tablet 20 mg PO DAILY 08/09/23 05/29/24 (Lexapro) amoxicillin 875 mg-potassium 1 tab PO BID dog bite 14 days #28 05/29/24 clavulanate 125 mg tablet tabs Previous Rx's ?Medication ?Instructions ?Recorded meclizine 12.5 mg tablet 12.5 mg PO BID PRN motion sickness 04/07/21 #60 tab-caps amoxicillin 875 mg-potassium 1 tab PO BID dog bite 14 days #28 05/29/24 clavulanate 125 mg tablet tabs Allergies Allergy/AdvReac Type Severity Reaction Status Date / Time adhesive AdvReac Skin Rash Verified 05/29/24 19:40 iv dye Allergy Severe Emotional Uncoded 05/29/24 19:40 reaction - crying/laughing, scratchy throat peanuts Allergy hives, Uncoded 05/29/24 19:40 vomiting General Stated Complaint: AnimalBite SHERIN: 3 Review of Systems All systems reviewed & are unremarkable except as noted in HPI and below Exam Narrative Exam Narrative: GENERAL APPEARANCE: Well-nourished, non-toxic, awake and alert, atraumatic, no acute distress. SKIN: Warm, pink, dry, 5cm linear laceration to medial thigh, 1cm puncture laceration just lateral/superior to this- the 5cm laceration is through the subcutaneous tissue, able to visualize fascial/muscle layers without significant disruption there, NV intact distally HEAD: Normocephalic, atraumatic, normal hair distribution for gender/age. EYES: Normal conjunctiva, no exudates on lids/lashes. ENT: Nares patent, no circumoral cyanosis, no facial swelling NECK: Supple, trachea midline, painless cervical ROM. LUNGS/CHEST: Non-labored respirations, normal A/P diameter, symmetrical expansion, no chest wall deformity HEART (CV/PV): Regular rate, no peripheral edema, no JVD. ABDOMEN: Soft, non-distended, no guarding. MSK: Normal ROM, no swelling/deformity to bilateral UEs or LEs, moving all extremities without weakness, no cyanosis, spine midline without tenderness, normal curvature. NEURO: Mental Status AAOx4 - alert to person, place, time, events No facial droop, no forehead involvement. Motor: No focal weakness - strength 5/5 in bilateral UEs and LEs, proximal and distal, symmetric. Sensory: sensation intact to light touch globally. Gait antalgic. PSYCH: euthymic, cooperative, pleasant, appropriate speech Course Vital Signs Vital signs: Vital Signs Temperature 36.9 C 05/29/24 19:41 Respiratory Rate 14 05/29/24 19:41 Pulse Oximetry 98 05/29/24 19:41 Temperature 36.9 C 05/29/24 19:41 Temperature Source Tympanic 05/29/24 19:41 Respiratory Rate 14 05/29/24 19:41 Respiratory Effort Normal 05/29/24 19:45 Pulse Oximetry 98 05/29/24 19:41 Oxygen Delivery Method Room Air 05/29/24 19:41 Oxygen Flow Rate 0 05/29/24 19:41 Pain Level 6 05/29/24 19:41 Medical Decision Making This dictation utilizes [id number]-[id number]-mand dictation software and may contain unedited grammatical errors. 28 year-old female presents to ED today by POV/ambulating with her spouse with a chief complaint of dog bite to R medial thigh- it was her two dogs that were fighting, she got in between them and was bitten briefly but deeply to the R thigh with onset just prior to arrival. Patient's dogs shots are all up to date, her Tdap is up to date. Quality described as painful laceration to R inner thigh, lengthy, with one puncture just lateral and superior, no radiation to severe bruising or swelling, numbness/tingling distally, inability to ambulate, has very minor abrasions to hands. Severity is described as moderate to severe. Palliating factors include nothing specific attempted. Provoking factors include nothing specific. Patients' medical history: noncontributory. Family and social history: noncontributory. Pertinent exam findings / vital signs include 5cm linear laceration to medial thigh, 1cm puncture laceration just lateral/superior to this- the 5cm laceration is through the subcutaneous tissue, able to visualize fascial/muscle layers without significant disruption there, NV intact distally. Differential / pathologies of concern include dog bite, laceration - complex. Diagnostic studies of: -none. Interventions of: -Consulted with Surgery as this wound may meet requirements for OR wash-out and closure vs healing by secondary intent due to the gaping nature of the wound elba r the hip joint about 6cm below the inguinal ligament - surgery consulted and packed wound, arranged follow-up for Monday. ED Course/Assessment/Plan: 28-year-old female has a deep gaping 5 cm laceration to her right inner thigh 6 cm below the inguinal ligament with a 1 cm puncture wound superior and lateral to this from a dog bite of her own dogs are up-to-date on their shots, her tetanus is up-to-date. Due to the gaping nature of this wound I think it may need a loose approximation or OR washout, surgery did consult see their note, they stated this needs packing and healing by secondary intent to prevent infection, the wound was packed by surgery with iodoform gauze, the patient's was present for this as he is an EMT and will be helping her with dressing changes. Arrange surgical follow-up for Monday, started the patient on IV ampicillin-sulbactam today and started a p.o. tablet of Augmentin with a 14- day course of Augmentin to go home sent by prescription. Counseled on t herapeutic dosing of Tylenol and ibuprofen and provided hydrocodone to go, the patient did not want opiates but agreed to trial the 4 tablets to go back in case of breakthrough pain, declined crutches. Findings not consistent with suturable laceration per surgery, ligament or tendon involvement, neurovascular compromise, active bleeding. Disposition of dog bite of right thigh. Patient verbalized understanding of the plan and return to ED criteria and engaged in shared decision making. Medical Records Medical records reviewed: Yes I reviewed the patient's medical records. 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 Alvarez-subjective and with hardy testing Tinnitus, bilateral (Chronic) Dr. Alvarez- left worse than right Dysarthria (Acute) Dizziness (Acute) Asthma (Chronic 01/19/17) Migraine with aura (Chronic 01/08/15) Medical History Ankle fracture Ankle joint loose body Asthma (01/19/17) Atypical migraine Blurry vision Chronic fatigue Migraine with aura (01/08/15) Tick bite Vertigo Surgical History Arthroscopy, Ankle R x3 Arthroscopy, Hip R x 2 Family History Mother Ulcerative colitis Father Hemochromatosis Vertigo Grandmother , Heart disease at age 70. Diabetes Essential hypertension Heart disease Hyperlipidemia COPD (chronic obstructive pulmonary disease) Secondhand smoke exposure Grandmother Substance abuse EtOH Thyroid disease Pt not sure what exact issue was, but had part of thyroid removed Grandfather Neoplasm Prostate CA Asthma Maternal Grandfather Emphysema lung late 70's Social History Smoking/Tobacco Use Status: Never Smoking risk assessment performed?: Yes Alcohol Intake: current Alcohol Intake frequency: a few times a month Alcohol type: beer Details: 2-3 TIMES A WEEK Drug use: Never Substance use type: does not use Adopted: No Caregiver/Support person: No Foster care: No Household members: significant other Number of Children: 0 Communication Needs: Corrective Lenses current occupation: PT assist Pets and animals: Yes Pets and animals: dog(s) Current gender identity: female What type of physical activity do you participate in: regular exercise Seatbelt use: always Drive intox or ride w/intox straight truck driver: No Working smoke detector in home: Yes Carbon monox detector in home: Yes Do you feel safe at home: Yes Do you feel safe in your relationship?: Yes Female Reproductive History Menstrual control method: condoms History History 1 Para 1 Hx # Term Pregnancies 1 Multiple births Hx # Pregnancies Ectopic pregnancies AB induced Hx Number of Living Children 1 AB spontaneous Past Pregnancies Del. Date GA/Weeks # Preg Succ Route Wgt Sex Labor Lgth Anesth esia Location [facility] 02/27/22 39 No vaginal 3900.044 g Male 32hr 34min regional [facility] Delivery Date: 02/27/22 Last Updated by: ISIDRO Winter
--- NOTE | 2024-05-29 20:22 | W.SURGCON ---
Date of service: 05/29/24 Time of Service: 20:38 Assessment and Plan Assessment and plan (1) Dog bite of thigh: Status: Acute Assessment and plan: I would recommend the wound be thoroughly washed out, and packed open with 1 iodoform gauze. I explained to the patient and her that closing the wound will greatly increase the risk of infection. I explained how the wound should be packed, and would recommend this be completed twice per day until healed by secondary intention. I would recommend the patient follow-up in general surgery clinic early next week for a wound inspection and further recommendations. The patient will get a dose of antibiotics tonight in the ER, and should be sent home with an additional 1-2 weeks of antibiotics. I would also recommend oral pain medications be taken 1 hour prior to dressing changes. History of Present Illness History of Present Illness Chief Complaint: Dogbite Narrative: 28 yo F who presents after being bit by one of her dogs. She reports her two dogs were fighting with each other and she was trying to break up the fight when the dog bite occurred. Both dogs are mixed breeds, and are up to date on their vaccinations. The patient was originally seen by the emergency department provider, who asked general surgery to see the patient and determine if the wound should be closed, and to help with follow-up recommendations. 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 Alvarez-subjective and with hardy testing Tinnitus, bilateral (Chronic) Dr. Alvarez- left worse than right Dysarthria (Acute) Dizziness (Acute) Asthma (Chronic 01/19/17) Migraine with aura (Chronic 01/08/15) Medical History Ankle fracture Ankle joint loose body Asthma (01/19/17) Atypical migraine Blurry vision Chronic fatigue Migraine with aura (01/08/15) Tick bite Vertigo Surgical History Arthroscopy, Ankle R x3 Arthroscopy, Hip R x 2 Family History Mother Ulcerative colitis Father Hemochromatosis Vertigo Grandmother , Heart disease at age 70. Diabetes Essential hypertension Heart disease Hyperlipidemia COPD (chronic obstructive pulmonary disease) Secondhand smoke exposure Grandmother Substance abuse EtOH Thyroid disease Pt not sure what exact issue was, but had part of thyroid removed Grandfather Neoplasm Prostate CA Asthma Maternal Grandfather Emphysema lung late 70's Social History Smoking/Tobacco Use Status: Never Smoking risk assessment performed?: Yes Alcohol Intake: current Alcohol Intake frequency: a few times a month Alcohol type: beer Details: 2-3 TIMES A WEEK Drug use: Never Substance use type: does not use Adopted: No Caregiver/Support person: No Foster care: No Household members: significant other Number of Children: 0 Communication Needs: Corrective Lenses current occupation: PT assist Pets and animals: Yes Pets and animals: dog(s) Current gender identity: female What type of physical activity do you participate in: regular exercise Seatbelt use: always Drive intox or ride w/intox local company flatbed truck driver: No Working smoke detector in home: Yes Carbon monox detector in home: Yes Do you feel safe at home: Yes Do you feel safe in your relationship?: Yes Female Reproductive History Menstrual control method: condoms History History 1 Para 1 Hx # Term Pregnancies 1 Multiple births Hx # Pregnancies Ectopic pregnancies AB induced Hx Number of Living Children 1 AB spontaneous Past Pregnancies Del. Date GA/Weeks # Preg Succ Route Wgt Sex Labor Lgth Anesthesia Location Prov Complic 02/27/22 39 No vaginal 3900.044 g Male 32hr 34min regional [facility] Delivery Date: 02/27/22 Last Updated by: ISIDRO Winter Exam Const General: cooperative, healthy appearing and comfortable [facility] Head: normocephalic and atraumatic Eyes Sclera: sclerae normal EOM: EOM intact bilaterally Resp Effort & Inspection: normal respiratory effort GI Inspection: normal to inspection and non-distended Neuro General: patient alert and patient oriented x3 Extrem Upper/lower leg/hip images: 1. 5 cm laceration through subcutaneous tissue to muscle layer 2. 1 cm puncture wound Psych Appearance: grossly normal Affect: anxious affect Results Last Vital Signs Temp 36.9 C 05/29/24 19:41 Resp 14 05/29/24 19:41 BP 123/63 05/29/24 19:47 Pulse Ox 98 05/29/24 19:41
[2024-05-29] MEDS: AMPICILLIN/SULBACTAM 3 GM in Normal Saline 100 ML IVPB (20:57)
[2024-05-29] MEDS: fentaNYL 100 MCG/2 ML VIAL 50 MCG IVP (21:04)
[2024-05-29] MEDS: Normal Saline 100 ML (21:05)
[2024-05-29] MEDS: Normal Saline 1,000 ML 2000 ML IV (21:05)
[2024-05-29] MEDS: Amoxicillin 875/Clav. 125 TAB PO (21:10)
[2024-05-29 21:38] VITALS: RESP 16; O2SAT 80; O2SAT 98
[2024-05-29 21:40] VITALS: BP 126/75; PULSE 72; TEMP 36.8; O2SAT 96
== END 2024-05-29 21:38 | disposition home or self-care (01) ==
PROVIDERS: Emergency Provider Physician Assistant; PCP Family Medicine
DX: W54.0XXA Bitten by dog, initial encounter; S71.151A Open bite, right thigh, initial encounter
CPT/HCPCS: 00123; 96365; 96375; 99284; 99283; J0295; J3010

== ENCOUNTER 2024-12-06 10:07 | Outpatient (CLI) | payer OTHER, SELFPAY ==
[2024-12-13 13:46] LABS: Ro60 Ab, IgG <7.0 CU (<20.0); SS-A/Ro, IgG <2.3 CU (<20.0); SS-B (La) Ab, IgG <3.3 CU (<20.0)
== END 2024-12-06 10:08 | disposition home or self-care (01) ==
LOC: LBO 10:08
PROVIDERS: PCP Family Medicine; Visit Provider Physician Assistant
DX: K13.0 Diseases of lips (principal); H04.123 Dry eye syndrome of bilateral lacrimal glands; K11.7 Disturbances of salivary secretion; R21 Rash and other nonspecific skin eruption
CPT/HCPCS: 36415; 86235

== ENCOUNTER 2025-01-09 01:07 | Outpatient (CLI) | payer OTHER, SELFPAY ==
--- NOTE | 2025-01-09 | DI.US_ITS ---
Exam(s) US BREAST LT COMPLETE MG MAMMO DIAGNOSTIC BI EXAM: MG MAMMO DIAGNOSTIC BI CLINICAL HISTORY: MASS UPPER OUTER QUAD LT BREAST, N63.21, MOBILE MASS 12:00 O'CLOCK. COMPARISON: US US BREAST LT COMPLETE from 01/09/2025 Baseline mammogram. TECHNIQUE: Craniocaudal and mediolateral oblique Full Field Digital Mammography views of both breast s with Computer Aided Diagnosis followed byTomosynthesis as well as spot compression CC and mL views and left breast ultrasound. FINDINGS: Mammography/Tomosynthesis: Masses: Mostly circumscribed nodule in the superior anterior breast with posterior obscured borders b y dense tissue. Measures 10 x 7 by 12 millimeters. Architectural Distortion: None seen. Microcalcifications: No suspicious pleomorphic-type are seen. Skin Thickening/Nipple Retraction: None. Left breast US: Echotexture: Normal appearance of the glandular tissue. Shadowing: No suspicious foci. Cyst: None. Solid lesions: Circumscribed hypoechoic nodule in the 12 o'clock position 2 cm from the nipple corres ponding to the mammographic abnormality. It measures 1.3 x 0.6 x 1.1 cm. The borders are mildly lob ulated. There is mild vascularity. Ductal dilation: None. IMPRESSION: 1. 1.3 centimeter nodule corresponding to the palpable abnormality most likely represents a fibroaden shaji however due to mild lobulation and mild vascularity, biopsy is recommended. 2. The findings were discussed with the patient and called to Dr. Marcum Breast Density - Category C - Heterogeneously dense Breast density category C or D implies that the patient has dense breast tissue. Dense breast tissue is very common and is not abnormal but dense breast tissue can make it harder to find cancer on a ma mmogram. Also, dense breast tissue may increase their breast cancer risk. This information about the result of the mammogram report was provided to the patient to raise their awareness. Use this report when you speak with the patient about their risks for breast cancer, which includes their family hist ory. At that time, you may recommend for more screening tests (Ultrasound or MRI) as they might be us eful based on their risk. A negative radiographic report should not delay biopsy if a dominant or clinically suspicious mass is present. Up to ten percent of cancers are not identified on mammography. A negative report may reinforce clinical impression. Adenosis and dense breasts may obscure an underlying neoplasm. False positive reports average 6 to 10%. Patient will receive a letter notifying them of these results.
== END 2025-01-09 01:27 ==
LOC: DI 01:08
PROVIDERS: PCP Family Medicine; Visit Provider Family Medicine
DX: Z12.31 Encounter for screening mammogram for malignant neoplasm of breast (principal); N63.21 Unspecified lump in the left breast, upper outer quadrant; R92.8 Other abnormal and inconclusive findings on diagnostic imaging of breast
CPT/HCPCS: 76642; 77062; 77066; G0279

== ENCOUNTER 2025-01-23 01:07 | Outpatient (CLI) | payer OTHER, SELFPAY ==
--- NOTE | 2025-01-23 | DI.US_ITS ---
Exam(s) US NEEDLE LOCAL BREAST WO RAD EXAM: Left breast mass COMPARISON: No exams were available for comparison TECHNIQUE: Ultrasound performed using standard protocol. FINDINGS: Sonography was provided for Dr. Cristhian Jurado of the department of surgery during the performance of a left breast biopsy. Please refer to the procedure report for complete details. Biopsy clip was plac ed. DATA REPOSITORY:
--- NOTE | 2025-01-23 14:00 | BREAST_PTH ---
PATIENT: Bhakti Dunbar LOC: [facility] U#:[id number] AGE/SX: 29/F ROOM: RE01/23/[address]: Cristhian Jurado MD : [id number] BED: DIS: 01/23/2025 SPEC #: [id number] RECD: 01/23/25 17:48 STATUS: ANGY REQ #: [id number] CHIVO: 01/23/25 14:[address]: Cristhian Jurado DEPT: Surgical Specimen RECD BY: Radha Alcocer ENTERED: 01/23/25 17:50 SP TYPE: Breast OTHR DR: Popeye Marcum Tissues: 1 - BREAST BX NEEDLE Procedures: GROSS AND MICRO LEVEL 4 Comments: [id number]
[2025-01-23] MEDS: Lidocaine 1% Pres-Free 5 ML VIAL IJ (14:37)
--- NOTE | 2025-01-23 16:02 | W.PROCNOTE ---
Date of service: 01/23/25 Time of Service: 14:10 Procedure Note Date of procedure: 01/23/25 Procedure: Ultrasound-guided core needle biopsy of left breast Surgeon/Proceduralist/Physician: Cristhian Jurado Procedure Diagnosis: Left breast mass Procedure Indications: Bhakti is a 29-year-old woman who developed a palpable mass in the left upper outer quadrant of her breast. She underwent a mammogram and ultrasound that demonstrated a 1.3 cm mildly lobulated mass for which biopsy was recommended Procedure Description: I met with Bhakti prior to the procedure, and explained the role of core needle biopsy and tissue diagnosis of the breast abnormality. I explained the nature of the procedure and the risks and the benefits and she was able to provide consent. Next, a limited ultrasound of the left breast was performed by the biosolids management technician. The mass appeared congruent with that from the previous ultrasound. I then prepped the area adjacent to the probe, and anesthetized the skin and the trajectory of the biopsy sites. I made a small skin incision using an 11 blade scalpel, then advanced a 22 mm Bard core needle biopsy device up to the periphery of the lesion in the left upper outer quadrant. Using the core needle biopsy device, 3 access service representative samples were obtained. Biopsy specimens appeared adequate for tissue diagnosis. The preserved in formalin. A radiopaque marker was used to uri the lesion, and some gentle pressure was held over the biopsy site to ensure hemostasis. A Band-Aid was applied, and Bhakti was discharged with postprocedure instructions, and a plan to contact her once the results are available.
== END 2025-01-23 01:27 ==
PROVIDERS: PCP Family Medicine; Visit Provider Surgery
DX: N60.22 Fibroadenosis of left breast (principal)
CPT/HCPCS: 19083; 88305; 76942; J2003